=== PATIENT | female | born 1950 | race Caucasian/White ===

== ENCOUNTER 2016-08-24 02:03 | Emergency (ER) | payer OTHER, MEDICARE ==
[2016-08-24] MEDS ORDERED: NS 0.9% 1000 ML* 1,000 ML IV ONE (02:04)
[2016-08-24] MEDS ORDERED: Ondansetron INJ* 2 MG/ML VIAL ONE (02:17)
[2016-08-24] MEDS ORDERED: Ondansetron INJ* 2 MG/ML VIAL IV ONE (02:18)
--- NOTE | 2016-08-24 02:25 | ED ---
Enid Dominguez Rebecca, scribed for Juan Alberto Sanchez MD on 08/24/16 at 0208 . Neurological HPI - HPI Summary HPI Summary: Pt is a 66 y/o F BIBA who comes to ED p/w L-sided weakness. Per , the pt had gotten up to go to the bathroom at 0120 this morning and fell. Her immediately noticed the weakness after the fall which has been constant since onset. Sx aggravated and alleviated by nothing. Additionally c/o N/V. Is not on any blood thinners. No previous similar episodes. - History of Current Complaint Chief Complaint: EDNeurologicalDeficit Stated Complaint: CODE AMBROSIO Time Seen by Provider: 08/24/16 02:04 Hx Obtained From: Patient, EMS Onset/Duration: Sudden Onset, Started hours ago - Aproximately 40 minutes SERVICE DELIVERY MANAGEMENT CONSULTANT, Still Present Timing: Constant Character: Weak - L-sided weakness Aggravating: Nothing Alleviating: Nothing Associated Signs and Symptoms: Positive: Nausea/Vomiting - Allergy/Home Medications Allergies/Adverse Reactions: Allergies Allergy/AdvReac Type Severity Reaction Status Date / Time No Known Allergies Allergy Verified 06/07/12 13:07 PMH/Surg Hx/FS Hx/Imm Hx Respiratory History: Reports: Hx Asthma History: Reports: Other Problems/Disorders - Hx UTI Infectious Disease History: Denies: Traveled Outside the [place] in Last 30 Days - Family History Known Family History: Positive: Cardiac Disease, Hypertension - Social History Lives: With Family Alcohol Use: Occasionally Hx Substance Use: No Substance Use Type: Reports: None Hx Tobacco Use: No Smoking Status (MU): Never Smoked Tobacco Review of Systems Positive: Vomiting, Nausea Positive: Weakness - L-sided weakness All Other Systems Reviewed And Are Negative: Yes Physical Exam Triage Information Reviewed: Yes Vital Signs Reviewed: Yes Appearance: Positive: No Pain Distress Skin: Positive: Warm Head/Face: Positive: Normal Head/Face Inspection Eyes: Positive: EOMI, MARTINA Neck: Positive: Supple Respiratory/Lung Sounds: Positive: Clear to Auscultation, Breath Sounds Present Cardiovascular: Positive: RRR Abdomen Description: Positive: Nontender, Soft Neurological: Positive: Other - left hemiparesis Psychiatric: Positive: Anxious Diagnostics - Laboratory Result Diagrams: 08/24/16 02:31 08/24/16 02:31 Lab Statement: Any lab studies that have been ordered have been reviewed, and results considered in the medical decision making process. - Radiology CXR Xray Interpretation: No Acute Changes Radiology Interpretation Completed By: ED Physician - CT Brain CT CT Interpretation: Positive (See Comments) - Positive for an acute right thalamic parenchymal hemorrhage measuring approximately 3.3 cm x 2.3 cm. There is surrounding edema. Blood has broken through into the third lateral and fourth ventricles. The mass effect of the parenchymal hemorrhage compresses the third ventricle resulting in ventricular outflow obstruction and lateral ventricular hydrocephalus. CT Interpretation Completed By: Radiologist - EKG 0218 Cardiac Rate: NL - 61 bpm EKG Rhythm: Sinus Rhythm ST Segment: Non-Specific - Non-specific ST abnormality NIH Scale - NIH Scale Level of Consciousness: Alert/Keenly Responsive Ask Patient the Month and His/Her Age: Both Correct Ask Pt to Open/Close Eyes and Spiritual Advisor/Release Non-Paretic Hand: Both Correctly Best Gaze (Only Horizontal Eye Movement): Normal Visual Field Testing: No Visual Loss Facial Paresis-Pt to Smile & Close Eyes or Grimace Symmetry: Normal/Symmetrical Motor Function - Right Arm: No Drift-Holds 10 Seconds Motor Function - Left Arm: No Effort Against [place] Motor Function - Right Leg: No Drift-Holds 10 Seconds Motor Function - Left Leg: No Effort Against [place] Limb Ataxia-Must be out of Proportion to Weakness Present: Absent Sensory (Use Pinprick to Test Arms/Legs/Trunk/Face): Normal Best Language (Describe Picture, Name Items): No Aphasia Dysarthria (Read Several Words): Normal Extinction and Inattention: No Abnormality Total Score: 6 Re-Evaluation - Re-Evaluation First Eval Re-Evaluation Time: 03:00 Change: Unchanged Comment: Updated the pt and her . Answered any questions. Course/Dx - Course Assessment/Plan: Pt is a 66 y/o F BIBA who comes to ED p/w L-sided weakness. Per , the pt had gotten up to go to the bathroom at 0120 this morning and fell. Her immediately noticed the weakness after the fall. Sx have been constant since onset. Sx aggravated and alleviated by nothing. Additionally c/o N/V. PMHx HTN. Is not on any blood thinners. No previous similar episodes. EKG reveals sinus rhythm with non-specific ST abnormalities. CXR reveals no acute findigns. Brain CT reveals "Positive for an acute right thalamic parenchymal hemorrhage measuring approximately 3.3 cm x 2.3 cm. There is surrounding edema. Blood has broken through into the third lateral and fourth ventricles. The mass effect of the parenchymal hemorrhage compresses the third ventricle resulting in ventricular outflow obstruction and lateral ventricular hydrocephalus." Discussed care of pt with Radiology is consultant who Discussing CT results. Discussed care of pt with Dr. Lenora Tracy, at 0232 who advised a transfer to his facility in [place], [place]. Discussed care of pt with [facility] at 0249 who will call back. Discussed care of pt with [facility] again at 0319 who gave a room assignment in the ICU. Pt will be transferred to [facility] with a Dx of cerebral hemorrhage. She and agree and understand. - Diagnoses Provider Diagnoses: Cerebral hemorrhage During the Visit The Following Alert/Code Occurred: Code Meredith - Called at 0203 - Physician Notifications Discussed Care Of Patient With: Radiology is consultant Time Discussed With Above Provider: 02:26 Instructed by Provider To: Other - Discussing CT results. Discussed care of pt with Dr. Lenora Tracy, at 0232 who advised a transfer to his facility in [place], [place]. Discussed care of pt with Dr. Jason Maguire at 0240, making him aware of the pt and the plan to transfer at this point. Discussed care of pt with [facility] at 0249 who will call back. Discussed care of pt with [facility] again at 0319 who gave a room assignment in the ICU. - Critical Care Time Critical Care Time: 30-74 min Discharge - Discharge Plan Condition: Critical Disposition: TRANS HIGHER LVL OF CARE FAC Referrals: Yesenia Perry MD [Primary Care Provider] - The documentation as recorded by the Enid longo Rebecca accurately reflects the service I personally performed and the decisions made by , Juan Alberto Sanchez MD.
[2016-08-24 02:42] LABS: Hematocrit 41 % (35-47); Hemoglobin 13.7 g/dl (12.0-16.0); Mean Corpuscular HGB Conc 33 g/dl (31-36); Mean Corpuscular Hemoglobin 33 pg (27-31); Mean Corpuscular Volume 98 fL (80-97); Mean Platelet Volume 7 um3 (7.4-10.4); Red Cell Distribution Width 13 % (10.5-15); White Blood Count 11.2 10^3/ul (3.5-10.8)
[2016-08-24 02:55] LABS: Albumin 4.2 g/dL (3.2-5.2); BUN/Creatinine Ratio 19.2 (8-20); Calcium 8.9 mg/dL (8.6-10.3); EGFR African American 94.5 (>60); EGFR Non-African American 73.4 (>60); Globulin 2.9 g/dL (2-4); HDL Cholesterol 52.1 mg/dL; Potassium 2.9 mmol/L (3.5-5.0); Total Bilirubin 0.5 mg/dL (0.2-1.0); Total Protein 7.1 g/dL (6.4-8.9)
[2016-08-24] MEDS ORDERED: Labetalol IV* 5 MG/ML 20 ML VIAL IV PUSH ONE (02:59)
[2016-08-24 03:40] VITALS: BP 164/84
--- NOTE | 2016-08-24 07:58 | RAD ---
INDICATION: Neurologic changes, code acosta. COMPARISON: There are no prior studies available for comparison. TECHNIQUE: A portable view of the chest was obtained. FINDINGS: Cardiac and mediastinal contours appear to be within normal limits. The lungs are clear. No pleural effusion is seen. IMPRESSION: NO EVIDENCE FOR ACUTE DISEASE.
--- NOTE | 2016-08-24 08:04 | RAD ---
INDICATION: Neurologic changes, code acosta. COMPARISON: There are no prior studies available for comparison. TECHNIQUE: Contiguous axial sections of the brain were obtained from the skull base to the vertex without contrast. FINDINGS: There is a focal area of increased density consistent with hemorrhage centered in the right thalamus with extension into the posterior limb of the internal capsule measuring approximately 3.4 x 2.3 cm in size. This causes mass effect and compression of the third ventricle which is displaced toward the left side with approximately 6 mm. There is extension of hemorrhage into the lateral, third and fourth ventricles. There is mild dilatation of the lateral ventricles consistent with hydrocephalus. No significant focal osseous abnormality is seen. The visualized portion of the paranasal sinuses and mastoid air cells appear clear. IMPRESSION: FINDINGS CONSISTENT WITH AN ACUTE HEMORRHAGIC INFARCT CENTERED IN THE RIGHT THALAMUS WITH EXTENSION INTO THE VENTRICLES. THERE IS MASS EFFECT AND HYDROCEPHALUS DESCRIBED.
== END 2016-08-24 03:57 | disposition short-term general hospital (02) ==
LOC: ED 02:03
DX: I61.9 Nontraumatic intracerebral hemorrhage, unspecified (principal); G81.94 Hemiplegia, unspecified affecting left nondominant side; R11.2 Nausea with vomiting, unspecified; J45.909 Unspecified asthma, uncomplicated; Z87.440 Personal history of urinary (tract) infections
CPT/HCPCS: 36415; 70450; 71010; 80053; 80061; 83605; 84484; 85025; 85610; 85730; 93005; 96360; 96361; 96374; 99284; J2405

== ENCOUNTER 2016-09-03 07:11 | Inpatient (IN) | payer OTHER, MEDICARE ==
[2016-09-03] MEDS ORDERED: Bisacodyl SUPP* 10 MG SUPP PR PRN (12:24)
[2016-09-03] MEDS ORDERED: Magnesium Hydroxide LIQ* 30 ML UDC PO PRN (12:24)
[2016-09-03] MEDS ORDERED: Polyethylene Glycol 3350* 17 GM PACKET PO PRN (12:35)
[2016-09-03] MEDS: Acetaminophen TAB* 325 MG PO PRN (20:40)
[2016-09-03] MEDS: Docusate CAP* 100 MG PO SCH (20:51)
[2016-09-03] MEDS: Heparin VIAL(*) 5000 UNITS/ML VIAL (FIVE THOUSAND) SUBCUT SCH (20:51)
[2016-09-03] MEDS: Senna TAB PO SCH (20:51)
--- NOTE | 2016-09-04 00:36 | HP ---
ADMISSION HISTORY AND PHYSICAL: DATE OF ADMISSION: 09/03/16 REASON FOR ADMISSION: Thalamic/intracerebral hemorrhage. HISTORY OF PRESENT ILLNESS: Katy Duong is a 66-year-old female. She has little in the way of medical history. On 08/23/16, she drove home to [place] from [facility] where her son is the is manager of a [employer]. It was a long drive. She had called her boyfriend on the way to say the air conditioning was not working in the car. She got home and felt exhausted after the long trip. She was getting into bed and her boyfriend asked her to scratch his back. She felt like her left hand was not working properly as she tried to do it. The boyfriend was worried and then she got up after lying down to try to go to the bathroom and she fell. She did not strike her head. Her boyfriend asked her to smile for him and he noticed when she attempted to smile , she had left facial droop. He called 911. He had given her aspirin earlier because she said she had a headache. 911 came and the patient was brought to [facility] Emergency Room. Her boyfriend drove her car to the hospital; the air conditioning worked, but the heat was on. She had a CAT scan of her brain in the emergency room, which showed a hemorrhagic infarct in the right thalamus with extension into the ventricles. It was decided that the patient would be transferred to [facility]. The patient was going to be transferred to [facility] [place] with a diagnosis of intracerebral hemorrhage. Dr. Tracy had accepted the patient. At [facility] [place], a decision was made to transfer the patient to [facility] via helicopter. She was admitted to the service of Dr. Card. She had a head CT and MRI scan showing right thalamic hemorrhage with intraventricular extension into the lateral third and fourth ventricles. Her systolic blood pressure was noted to be in the 170s. She was started on a nicardipine drip and admitted to the neurologic ICU. Neurosurgery was consulted and placed an external ventricular drain for intracranial pressure monitoring and CSF diversion. Her neurologic exam gradually improved. She was started on amlodipine for her blood pressure. She was also put on hydralazine. Her nicardipine drip was weaned off. Hydralazine was later transitioned to lisinopril. On 09/01/16 her ventricular drain was removed by the neurosurgery tube. Repeat head CT demonstrated stable hemorrhage. She also had a small external ventricular drain tract hemorrhage. The tract hemorrhage was stable upon subsequent imaging. She worked with Physical Therapy and Occupational Therapy as well as Speech Therapy. The patient was felt to have needs in all 3 disciplines. She is now being admitted for inpatient rehab so that she might return to independent living. Her sutures from the ventricular drain site will need to be removed on 09/07/16. PAST MEDICAL HISTORY: Largely nonsignificant. She does have a history of asthma, but otherwise benign. CURRENT MEDICATIONS: Include: 1. Lipitor. 2. Norvasc. 3. Heparin for DVT prophylaxis. 4. Lisinopril. 5. Bowel medications. ALLERGIES: The patient has no known drug allergies. SOCIAL HISTORY: She is a nonsmoker. She drank 2 glasses of wine a night prior to admission. 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 She lives in a 3-story house. Entry is on the second floor. There are bedrooms and bathrooms on the first level. The patient lives with her boyfriend, Oskar Oakley, who is her domestic partner and healthcare proxy. REVIEW OF SYSTEMS: The patient reports no current shortness of breath or chest pain. PHYSICAL EXAMINATION VITAL SIGNS: The patient's temperature is 98.5, blood pressure is 110/66, pulse is 81, respirations are 12. HEENT: She appears to have a left gaze preference. No visual field deficits are seen. She has a suture line over her right scalp. She has left facial palsy. NECK: Supple. LUNGS: Sounded clear to auscultation bilaterally. HEART: Heart sounds are regular, S1 and S2 are audible. ABDOMEN: Soft and nontender. EXTREMITIES: Her left arm is starting to get some tone. Left leg is flaccid. She has some extensor plantar flexion tone at the left foot. NEUROLOGIC: She is awake, alert, and oriented. Muscle strength is 5/5 on the right. She has trace shoulder extension on the left arm. I did not detect any motion in the left leg. Her transfers are dependent. ASSESSMENT: Right thalamic hemorrhage with left hemiplegia. PLAN: We are going to integrate her into comprehensive and therapeutic rehab program with the following goals. 1. Physical Therapy will see the patient. They are going to work on functional transfer training, ambulation training. 2. Occupational Therapy will see the patient, work on her activities of daily living including toileting and toilet transfers. 3. Speech Therapy will see the patient, do a cognitive screen, and cognitive linguistic eval. 4. Heparin for DVT prophylaxis. 5. We will continue lisinopril as well as amlodipine for her blood pressure. 6. SSRI/Prozac as indicated. 7. Stimulants as indicated. 8. director of child welfare services will be closely involved to make sure that any services and equipment the patient requires are in place prior to discharge. 9. Advanced directives. The patient is a full code. Oskar Oakley, her domestic partner, is her healthcare proxy. 10. Family training as appropriate. 11. Home with appropriate services. ESTIMATED LENGTH OF STAY: Four weeks. [id number]/CPS #: [id number] MTDD
[2016-09-04 06:27] LABS: Hematocrit 42 % (35-47); Mean Corpuscular HGB Conc 33 g/dl (31-36); Mean Corpuscular Hemoglobin 33 pg (27-31); Mean Corpuscular Volume 99 fL (80-97); Mean Platelet Volume 8 um3 (7.4-10.4); Red Blood Count 4.22 10^6/ul (4.0-5.4); Red Cell Distribution Width 13 % (10.5-15); White Blood Count 9.7 10^3/ul (3.5-10.8)
[2016-09-04 06:48] LABS: Albumin 3.6 g/dL (3.2-5.2); BUN/Creatinine Ratio 29.9 (8-20); Calcium 8.7 mg/dL (8.6-10.3); EGFR African American 112.6 (>60); EGFR Non-African American 87.5 (>60); Globulin 2.8 g/dL (2-4); Potassium 3.4 mmol/L (3.5-5.0); Total Bilirubin 0.6 mg/dL (0.2-1.0); Total Protein 6.4 g/dL (6.4-8.9)
[2016-09-04] MEDS: Lisinopril TAB* 10 MG PO SCH (08:48)
[2016-09-04] MEDS: Docusate CAP* 100 MG PO SCH ×2 (08:48→19:12)
[2016-09-04] MEDS: amLODIPine TAB* 5 MG PO SCH (08:48)
[2016-09-04] MEDS: Heparin VIAL(*) 5000 UNITS/ML VIAL (FIVE THOUSAND) SUBCUT SCH ×2 (08:49→19:12)
[2016-09-04] MEDS: Potassium Chlor TAB* 20 MEQ TAB.ER PO SCH ×2 (10:58→19:12)
[2016-09-04] MEDS: Acetaminophen TAB* 325 MG PO PRN (12:01)
--- NOTE | 2016-09-04 12:09 | PMRUTEAM ---
PMRU: Goals Current Status: Nursing: Current Status Skin Deviations [Left Heel] Other Skin Deviations [Left Hand] Previous Access Point Skin Deviations [Coccyx] Other Skin Deviations [Back] Rash Skin Deviations [Right Upper Incision Head] Skin Deviation Description [ red Left Heel] Skin Deviation Description [ bump, infiltrated, patient states is sore Left Hand] Skin Deviation Description [ red Coccyx] Skin Deviation Description [ upper back, cream applied Back] Skin Deviation Description [ EVD removed. Right Upper Head] Physical Therapy: Current Status Bed Mobility Assistance max A Transfer Moblility Assistance Mod A Ambulation Assistance not tested/unable Wheelchair Distance (ft) no tested yet OCCUPATIONAL THERAPY: Upper body and lower body dressing max to total assist, toileting total assist of 2, transfer 2 mod to max A, eating set up but cues for left side of plate, grooming set up. Speech tx - left neglect.moderate visual attention for reading and writing. time management 60% accuracy. Social Work: Current Status Discharge Plan return home with home care svs and family support Potential for Family Training pt's family and friends are attentive and involved Anticipated Discharge Home Destination Discharge With home care svs and family support Goals: Physical Therapy: Initial Goals Bed Mobility Assistance Independent Transfer Mobility Assistance Independent stand pivot Wheelchair Propulsion Ability Independent 150ft OCCUPATIONAL THERAPY GOALS: modified independent for toileting, grooming, eating. Supervision for showers with shower chair. Speech: Goals Speech Goal 1 Cognitive-linguistic Goal 1 Comments LTG: The patient will complete functional cognitive-linguistic tasks at 90% accuracy for improved safety, function and independence for daily living tasks. STGs: 1. The patient will complete functional left visual attention for reading and writing tasks at 90% accuracy with min cues. 2. The patient will complete ongoing assessment for functional money and time management tasks with update to POC as warranted. Social Work: Goals Discharge Plan return home with home care svs and family support Potential for Family Training pt's family and friends are attentive and involved Anticipated Discharge Home Destination Discharge With home care svs and family support Care Plan: Care Plan Communication-Improve/Maintain Start: 09/03/16 23:19 Freq: QSHIFT Status: Active Target: Activity Type Activity Date Activity User E-Sign Co-Sign Detail Recorded Client Recorded Date Recorded By Document 09/04/16 11:31 [id number] 09/04/16 11:33 [id number] 09/04/16 11:31 PMRU Outcome: Communication/Cognitive Status Outcome/Goals Makes Needs Known Effectively Progression Toward Outcomes/Goals Progressing Coping/Psych-Improve/Maintain Start: 09/03/16 23:19 Freq: QSHIFT Status: Active Target: Activity Type Activity Date Activity User E-Sign Co-Sign Detail Recorded Client Recorded Date Recorded By Document 09/04/16 11:31 [id number] 09/04/16 11:33 [id number] 09/04/16 11:31 PMRU Outcome: Coping/Psychosocial Coping Outcome/Goals Verbalization of Acceptance of Rehab Admit Verbalization of Sense of Control Over Health Status Willingness to Participate in Treatment Plan and Basic Needs Utilization of Available Support Systems Psychosocial Outcome/Goals Maintain/ Improve Emotional Health Progression Toward Outcome/Goals - Progressing Coping DVT Prophylaxis- Improve/Maintain Start: 09/03/16 23:19 Freq: QSHIFT Status: Active Target: Activity Type Activity Date Activity User E-Sign Co-Sign Detail Recorded Client Recorded Date Recorded By Document 09/04/16 11:31 [id number] [email or web address] 09/04/16 11:33 [id number] 09/04/16 11:31 PMRU Outcome: DVT Prophylaxis Outcome/Goals Remains Free of DVT Demonstrates Knowledge of DVT Prevention/ Treatment TEDS Stockings on Every AM, Off at HS Progression Toward Outcome/Goals Progressing /GI-Improve/Maintain Start: 09/03/16 23:19 Freq: QSHIFT Status: Active Target: Activity Type Activity Date Activity User E-Sign Co-Sign Detail Recorded Client Recorded Date Recorded By Document 09/04/16 11:31 [id number] 09/04/16 11:33 [id number] 09/04/16 11:31 PMRU Outcome: Genitourinary/ Gastrointestinal Genitourinary- Outcome/Goals Maintain/ Achieve Urinary Continence Remain Free of Hospital- Acquired UTI Gastrointestinal-Outcome/Goals Maintain/ Achieve Bowel Regularity in Accordance with Pt's Baseline Remain Free of Emesis Bowel Regularity at Home Laxatives as Ordered Progression Toward Outcome/Goals - Progressing Progression Toward Outcome/Goals - GI Progressing Genitourinary- Outcome/Goals Met Maintain/ Achieve Urinary Continence Mobility- Improve/Maintain Start: 09/03/16 18:01 Freq: QSHIFT Status: Active Target: Activity Type Activity Date Activity User E-Sign Co-Sign Detail Recorded Client Recorded Date Recorded By Document 09/03/16 18:01 [id number] 09/03/16 18:02 [id number] 09/03/16 18:01 PMRU Outcome: Mobility Physical Therapy Evaluation and Yes Treatment Activity OOB with Assistance Yes WBAT Yes NWB No TTWB No Patient to be seen 5x/wk for 60-120 min/ Therex day for: Mobility Training Gait Training W/C Mobility Balance Outcome/Goals Maintain/ Achieve Baseline Mobility Status Improve Mobility Status Demonstrates Proper Use of Assistive Devices Free from Complications of Immobility Bed Mobility Yes: independent Transfers mod independent W/C Mobility x ft Yes: independent x250ft Neurological- Improve/Maintain Start: 09/03/16 23:19 Freq: QSHIFT Status: Active Target: Activity Type Activity Date Activity User E-Sign Co-Sign Detail Recorded Client Recorded Date Recorded By Document 09/04/16 11:31 [id number] 09/04/16 11:33 [id number] 09/04/16 11:31 PMRU Outcome: Neurological Outcome/Goals Maintain/ Achieve Baseline Neurological Status Improve Neurological Status Maintain/ Improve Strength/ROM Progression Toward Outcome/Goals Progressing Pain/Comfort- Improve/Maintain Start: 09/03/16 23:19 Freq: QSHIFT Status: Active Target: Activity Type Activity Date Activity User E-Sign Co-Sign Detail Recorded Client Recorded Date Recorded By Document 09/04/16 11:31 [id number] 09/04/16 11:33 [id number] 09/04/16 11:31 PMRU Outcome: Pain/Comfort Outcome/Goals Demonstrates Knowledge and Use of Available Comfort Measures Achieves Acceptable Comfort/Pain Level as Determined by Patient/Condit Maintain Comfort Level Allowing Patient to Fully Participate in Rehab Progression Toward Outcome/Goals Progressing Safety- Improve/Maintain Start: 09/03/16 23:19 Freq: QSHIFT Status: Active Target: Activity Type Activity Date Activity User E-Sign Co-Sign Detail Recorded Client Recorded Date Recorded By Document 09/04/16 11:31 [id number] 09/04/16 11:33 [id number] 09/04/16 11:31 PMRU Outcome: Safety Outcome/Goals Remain Free of Injury or Harm Cooperates with Safety Measures for Least Restrictive Environment Prevent Falls/ Injury Progression Toward Outcome/Goals Progressing Skin- Improve/Maintain Start: 09/03/16 23:19 Freq: QSHIFT Status: Active Target: Activity Type Activity Date Activity User E-Sign Co-Sign Detail Recorded Client Recorded Date Recorded By Document 09/04/16 11:31 [id number] 09/04/16 11:33 [id number] 09/04/16 11:31 PMRU Outcome: Skin Skin Risk Level Medium Skin Orders Dressing Change Air Mattress Outcome/Goals Maintain/ Improve Skin Intergrity Free from Decubitus Surgical Incisions Healing Progression Toward Outcome/Goals Progressing Medicine Note: Length of Stay: [4 weeks] Anticipated Discharge Destination: Home Tentative Discharge Date: [10/02/16] Discharged to: [home]
[2016-09-04] MEDS: Atorvastatin* 80 MG TAB PO SCH (17:20)
[2016-09-04] MEDS: Senna TAB PO SCH (19:12)
[2016-09-05] MEDS: Potassium Chlor TAB* 20 MEQ TAB.ER PO SCH ×2 (07:50→19:45)
[2016-09-05] MEDS: Acetaminophen TAB* 325 MG PO PRN (07:50)
[2016-09-05] MEDS: amLODIPine TAB* 5 MG PO SCH (07:50)
[2016-09-05] MEDS: Lisinopril TAB* 10 MG PO SCH (07:50)
[2016-09-05] MEDS: Docusate CAP* 100 MG PO SCH ×2 (07:50→19:45)
[2016-09-05] MEDS: Heparin VIAL(*) 5000 UNITS/ML VIAL (FIVE THOUSAND) SUBCUT SCH ×2 (07:52→19:45)
[2016-09-05] MEDS: Atorvastatin* 80 MG TAB PO SCH (18:15)
[2016-09-05] MEDS: Senna TAB PO SCH (19:45)
[2016-09-06] MEDS: Lisinopril TAB* 10 MG PO SCH (08:49)
[2016-09-06] MEDS: amLODIPine TAB* 5 MG PO SCH (08:49)
[2016-09-06] MEDS: Potassium Chlor TAB* 20 MEQ TAB.ER PO SCH ×2 (08:49→20:20)
[2016-09-06] MEDS: Docusate CAP* 100 MG PO SCH ×2 (08:49→20:21)
[2016-09-06] MEDS: Heparin VIAL(*) 5000 UNITS/ML VIAL (FIVE THOUSAND) SUBCUT SCH ×2 (08:50→20:21)
[2016-09-06 09:39] LABS: BUN/Creatinine Ratio 28.8 (8-20); Calcium 9.4 mg/dL (8.6-10.3); EGFR Non-African American 79.3 (>60); Globulin 3.1 g/dL (2-4); Potassium 3.6 mmol/L (3.5-5.0); Total Bilirubin 0.8 mg/dL (0.2-1.0); Total Protein 7.1 g/dL (6.4-8.9)
[2016-09-06 13:09] LABS: Magnesium 1.9 mg/dL (1.9-2.7)
[2016-09-06] MEDS: Atorvastatin* 80 MG TAB PO SCH (16:13)
[2016-09-06] MEDS: Senna TAB PO SCH (20:21)
[2016-09-07] MEDS: Heparin VIAL(*) 5000 UNITS/ML VIAL (FIVE THOUSAND) SUBCUT SCH ×2 (09:23→22:10)
[2016-09-07] MEDS: amLODIPine TAB* 5 MG PO SCH (09:23)
[2016-09-07] MEDS: Potassium Chlor TAB* 20 MEQ TAB.ER PO SCH ×2 (09:23→20:01)
[2016-09-07] MEDS: Docusate CAP* 100 MG PO SCH ×2 (09:42→20:02)
[2016-09-07] MEDS: Lisinopril TAB* 10 MG PO SCH (09:43)
[2016-09-07] MEDS: Atorvastatin* 80 MG TAB PO SCH (16:38)
[2016-09-07] MEDS: Senna TAB PO SCH (20:02)
[2016-09-07] MEDS ORDERED: diPHENhydraMINE PO* 25 MG PO SCH (21:00)
[2016-09-08 06:06] LABS: BUN/Creatinine Ratio 33.8 (8-20); Calcium 9.1 mg/dL (8.6-10.3); EGFR African American 116.6 (>60); EGFR Non-African American 90.6 (>60); Potassium 4.2 mmol/L (3.5-5.0)
[2016-09-08] MEDS: Potassium Chlor TAB* 20 MEQ TAB.ER PO SCH (08:43)
[2016-09-08] MEDS: amLODIPine TAB* 5 MG PO SCH (08:44)
[2016-09-08] MEDS: Lisinopril TAB* 10 MG PO SCH (08:44)
[2016-09-08] MEDS: Heparin VIAL(*) 5000 UNITS/ML VIAL (FIVE THOUSAND) SUBCUT SCH ×2 (08:45→21:51)
[2016-09-08] MEDS: Docusate CAP* 100 MG PO SCH ×2 (08:48→21:51)
--- NOTE | 2016-09-08 12:48 | PMRUTEAM ---
PMRU: Goals Current Status: Nursing: Current Status Skin Deviations [Left Heel] Other Skin Deviations [Left Hand] Previous Access Point Skin Deviations [Coccyx] Other Skin Deviations [Back] Rash Skin Deviations [Right Upper Incision Head] Skin Deviation Description [ red Left Heel] Skin Deviation Description [ bump, infiltrated, patient states is sore Left Hand] Skin Deviation Description [ redness Coccyx] Skin Deviation Description [ baby powder used Back] Skin Deviation Description [ drsg intact Right Upper Head] Bladder Current Status voiding on bsc or using bedpan Bowel Current Status last bm 09/07/16 Nutrition Current Status appetite good Medication Current Status needs reinforcement Physical Therapy: Current Status Bed Mobility Assistance Mod Assist Transfer Moblility Assistance Min Assist,Mod Assist Transfer/Bed Mobility None Recommended Devices Ambulation Assistance Unable Manual Wheelchair Control/ Right UE/Right LE Technique Wheelchair Propulsion Ability Moderate Assistance Wheelchair Distance (ft) 100x2 Objective Comments Pt requires assistance with wheelchair mobility to avoid objects on LEFT. Occupational Therapy: Current Status Upper Body Dressing Mod Assist Lower Body Dressing Max Asst Bathing Mod Assist Toileting Total Assist,2 Person Assist Toilet Transfer Mod Assist,2 Person Assist Shower Transfer Mod Assist,2 Person Assist Eating Supervision Instrumental ADL Dependent for IADLs Rec Therapy: Current Status Summary of Assessment and RT assessment complete and pt. is aware of Clinical Impression services. Pt. presents as very flat during visits but is polite and voices appreciative. Pt. is very interested in massage therapy and has been active in sessions while on the unit. Treatment Goals Pt. will engage in leisure activities while on the unit. Treatment Plan Provide RT services and encourage involvement. Provide support as needed and assist with the coordination of massage therapy while on the unit. Provided individualized activities for pt. to engage in while in her room. Social Work: Current Status Discharge Plan return home with home care svs and family support Potential for Family Training pt's family and friends are attentive and involved Anticipated Discharge Home Destination Discharge With home care svs and family support Nutrition: Current Status Monitoring Pt s/p ICH. Intake appears adequate: 75-100% of most meals, though some 5-25% noted. Generally independent, though sometimes needs food cut or assistance with feeding. BMs 09/04-. No evidence of difficulty chewing/swallowing per nursing assessments. Regular diet appears appropriate at this time. Full nutrition assessment to follow per protocol. Speech: Current Status Assessment The patient made improvements with left visual attention for reading and writing, however presented with significant deficit with visual attention for left lower quadrant. The patient presented with deficits with functional time management tasks. The patient would benefit from skilled [facility] services for cognitive-linguistic treatment focusing on left visual attention for reading and writing and functional money and time management tasks for improved safety, function and indpenedence for daily living tasks. Goals: Physical Therapy: Initial Goals Bed Mobility Assistance Independent Transfer Mobility Assistance Independent Wheelchair Propulsion Ability Independent Occupational Therapy: Initial Goals Goals to be Completed in (Days 28 days ) Upper Body Bathing Routine Modified Independent with Lower Body Bathing Routine Supervision/Set Up Upper Body Dressing Routine Modified Independent with Lower Body Dressing Routine Modified Independent with Toilet Hygeine and Clothing Modified Independent with Management Routine Toilet Transfer Routine Modified Independent with Step-In Shower Transfer Supervision/Set Up Routine Tub Transfer Routine Supervision/Set Up Functional Transfers for ADL Modified Independent with Grooming Routine Modified Independent with Feeding Routine Supervision/Set Up Nursing: Goals Bladder Goal independent Bowel Goal independent Nutrition Goal 100% of all meals eaten Medication Goal independent Nutrition: Goals Intervention Goals 1. Pt will tolerate regular diet with intake adequate to maintain UBW 2. Pt will maintain regular bowel pattern without constipation/diarrhea Speech: Goals Speech Goal 1 Cognitive-linguistic Goal 1 Comments LTG: The patient will complete functional cognitive-linguistic tasks at 90% accuracy for improved safety, function and independence for daily living tasks. STGs: 1. The patient will complete functional left visual attention for reading and writing tasks at 90% accuracy with min cues. Status: The patient read functional time chart ( banking hours) with moderate-max cues when placed on table slightly to left (lower left quadrant) and required min-mod cues for left visual attention when placed at eye level. The patient required moderate cues to write responses to questions pertaining to functional time chart as the patient attempted to write off the line on the incorrect line. 2. The patient will complete ongoing assessment for functional money and time management tasks with update to POC as warranted. Status: The patient completed functional time management tasks at 50% accuracy improving to 60% accuracy with repetition and 100% accuracy with moderate cues. Social Work: Goals Discharge Plan return home with home care svs and family support Potential for Family Training pt's family and friends are attentive and involved Anticipated Discharge Home Destination Discharge With home care svs and family support Care Plan: Care Plan ADL's - Improve/Maintain Start: 09/03/16 23:19 Freq: DAILY Status: Active Target: Activity Type Activity Date Activity User E-Sign Co-Sign Detail Recorded Client Recorded Date Recorded By Document 09/07/16 14:35 [id number] [id number] 09/07/16 14:36 [id number] 09/07/16 14:35 PMRU Outcome: ADL's/ADL Transfers Orders/Interventions Occupational Therapy Evaluation & Treatment Communication Tool in Patient Room Device Yes: w/c, L side arm support on w/c Patient to receive OT 5x/wk for 60-120 Therex min/day Self Care Management Group Therapy Neuromuscular ReEducation UE/LE ADL's with Assist Yes ADL Transfers with Assist Yes Toileting: Transfers,Clothing Management Yes ,Hygeine w/Assist Light Kitchen/Laundry w/Assist Yes Progression Toward Outcome/Goals Progressing Outcome/Goals Met Pt. is min assist x1 and CGA x1 for stand pivot transfers. Pt. completed bathing while seated on shower bench with LOB x5, and is unaware of need to change body position after LOB. Communication-Improve/Maintain Start: 09/03/16 23:19 Freq: DAILY Status: Active Target: Activity Type Activity Date Activity User E-Sign Co-Sign Detail Recorded Client Recorded Date Recorded By Document 09/08/16 08:16 [id number] [email or web address] 09/08/16 08:17 [id number] 09/08/16 08:16 PMRU Outcome: Communication/Cognitive Status Outcome/Goals Makes Needs Known Effectively Other Outcomes/Goals The patient will complete functional cognitive- linguistic tasks for increased function safety and independence at 90% accuracy. Progression Toward Outcomes/Goals Progressing Outcome/Goals Met Comment Time management 60% accuracy, reading for left visual attention min- max cues for functional reading task - min-mod cues when set at eye level, mod-max cues when placed on table slightly to left. Coping/Psych-Improve/Maintain Start: 09/03/16 23:19 Freq: DAILY Status: Active Target: Activity Type Activity Date Activity User E-Sign Co-Sign Detail Recorded Client Recorded Date Recorded By Document 09/08/16 11:13 [id number] 09/08/16 11:15 [id number] 09/08/16 11:13 PMRU Outcome: Coping/Psychosocial Coping Outcome/Goals Verbalization of Acceptance of Rehab Admit Verbalization of Sense of Control Over Health Status Willingness to Participate in Treatment Plan and Basic Needs Utilization of Available Support Systems Psychosocial Outcome/Goals Maintain/ Improve Emotional Health Cooperate/ Participate in Plan Progression Toward Outcome/Goals - Progressing Coping Progression Toward Outcome/Goals - Progressing Psychosocial DVT Prophylaxis- Improve/Maintain Start: 09/03/16 23:19 Freq: DAILY Status: Active Target: Activity Type Activity Date Activity User E-Sign Co-Sign Detail Recorded Client Recorded Date Recorded By Document 09/08/16 11:13 [id number] 09/08/16 11:15 [id number] 09/08/16 11:13 PMRU Outcome: DVT Prophylaxis Outcome/Goals Remains Free of DVT Complies with DVT Prophylaxis /Treatment Demonstrates Knowledge of DVT Prevention/ Treatment TEDS Stockings on Every AM, Off at HS Progression Toward Outcome/Goals Progressing Outcome/Goals Met Remains Free of DVT /GI-Improve/Maintain Start: 09/03/16 23:19 Freq: DAILY Status: Active Target: Activity Type Activity Date Activity User E-Sign Co-Sign Detail Recorded Client Recorded Date Recorded By Document 09/08/16 11:13 [id number] [id number] 09/08/16 11:15 [id number] 09/08/16 11:13 PMRU Outcome: Genitourinary/ Gastrointestinal Genitourinary- Outcome/Goals Maintain/ Achieve Urinary Continence Remain Free of Hospital- Acquired UTI Gastrointestinal-Outcome/Goals Maintain/ Achieve Bowel Regularity in Accordance with Pt's Baseline Remain Free of Emesis Prevent Constipation Bowel Regularity at Home Laxatives as Ordered Progression Toward Outcome/Goals - Progressing Progression Toward Outcome/Goals - GI Progressing Genitourinary- Outcome/Goals Met Maintain/ Achieve Urinary Continence Mobility- Improve/Maintain Start: 09/03/16 18:01 Freq: DAILY Status: Active Target: Activity Type Activity Date Activity User E-Sign Co-Sign Detail Recorded Client Recorded Date Recorded By Document 09/05/16 18:25 [id number] 09/05/16 18:25 [id number] 09/05/16 18:25 PMRU Outcome: Mobility Physical Therapy Evaluation and Yes Treatment Activity OOB with Assistance Yes WBAT Yes NWB No TTWB No Patient to be seen 5x/wk for 60-120 min/ Therex day for: Mobility Training Gait Training W/C Mobility Balance Outcome/Goals Maintain/ Achieve Baseline Mobility Status Improve Mobility Status Demonstrates Proper Use of Assistive Devices Free from Complications of Immobility Progression Toward Outcome/Goals Progressing Bed Mobility Yes: independent Transfers mod independent W/C Mobility x ft Yes: independent x250ft Neurological- Improve/Maintain Start: 09/03/16 23:19 Freq: DAILY Status: Active Target: Activity Type Activity Date Activity User E-Sign Co-Sign Detail Recorded Client Recorded Date Recorded By Document 09/08/16 11:13 [id number] [email or web address]14 09/08/16 11:15 [id number] 09/08/16 11:13 PMRU Outcome: Neurological Weakness/Aphasia Weakness Left Side Outcome/Goals Maintain/ Achieve Baseline Neurological Status Improve Neurological Status Maintain/ Improve Strength/ROM Progression Toward Outcome/Goals Progressing Pain/Comfort- Improve/Maintain Start: 09/03/16 23:19 Freq: DAILY Status: Active Target: Activity Type Activity Date Activity User E-Sign Co-Sign Detail Recorded Client Recorded Date Recorded By Document 09/08/16 11:13 [id number] [email or web address]-C14 09/08/16 11:15 [id number] 09/08/16 11:13 PMRU Outcome: Pain/Comfort Outcome/Goals Demonstrates Knowledge and Use of Available Comfort Measures Achieves Acceptable Comfort/Pain Level as Determined by Patient/Condit Maintain Comfort Level Allowing Patient to Fully Participate in Rehab Progression Toward Outcome/Goals Progressing Outcome/Goals Met Demonstrates Knowledge and Use of Available Comfort Measures Safety- Improve/Maintain Start: 09/03/16 23:19 Freq: DAILY Status: Inactive Target: Activity Type Activity Date Activity User E-Sign Co-Sign Detail Recorded Client Recorded Date Recorded By Document 09/08/16 11:13 [id number] [email or web address]14 09/08/16 11:15 [id number] 09/08/16 11:13 PMRU Outcome: Safety Outcome/Goals Remain Free of Injury or Harm Cooperates with Safety Measures for Least Restrictive Environment Prevent Falls/ Injury Progression Toward Outcome/Goals Progressing Outcome/Goals Met Cooperates with Safety Measures for Least Restrictive Environment Prevent Falls/ Injury Skin- Improve/Maintain Start: 09/03/16 23:19 Freq: DAILY Status: Active Target: Activity Type Activity Date Activity User E-Sign Co-Sign Detail Recorded Client Recorded Date Recorded By Document 09/08/16 11:13 [id number] 09/08/16 11:15 [id number] 09/08/16 11:13 PMRU Outcome: Skin Skin Risk Level Medium Dressing Change Comments pillows Outcome/Goals Maintain/ Improve Skin Intergrity Free from Decubitus Surgical Incisions Healing Progression Toward Outcome/Goals Progressing Medicine Note: Length of Stay: [3.5 weeks] Anticipated Discharge Destination: Home Tentative Discharge Date: [10/02/16] Discharged to: [home]
[2016-09-08] MEDS: Atorvastatin* 80 MG TAB PO SCH (17:15)
[2016-09-08] MEDS ORDERED: [UNRECOGNIZED DRUG - OTHER] SL PRN (21:18)
[2016-09-08] MEDS: diPHENhydraMINE PO* 25 MG PO SCH ×2 (21:51→22:45)
[2016-09-08] MEDS: Senna TAB PO SCH (21:51)
[2016-09-09] MEDS: Lisinopril TAB* 10 MG PO SCH (08:12)
[2016-09-09] MEDS: Heparin VIAL(*) 5000 UNITS/ML VIAL (FIVE THOUSAND) SUBCUT SCH ×2 (08:12→20:49)
[2016-09-09] MEDS: Docusate CAP* 100 MG PO SCH ×2 (08:12→20:48)
[2016-09-09] MEDS: amLODIPine TAB* 5 MG PO SCH (08:12)
[2016-09-09] MEDS: Senna TAB PO SCH (20:48)
[2016-09-09] MEDS: Atorvastatin* 80 MG TAB PO SCH (20:48)
[2016-09-09] MEDS: diPHENhydraMINE PO* 25 MG PO SCH (20:48)
[2016-09-10] MEDS: Lisinopril TAB* 10 MG PO SCH (08:08)
[2016-09-10] MEDS: amLODIPine TAB* 5 MG PO SCH (08:08)
[2016-09-10] MEDS: Docusate CAP* 100 MG PO SCH ×2 (08:08→19:56)
[2016-09-10] MEDS: Heparin VIAL(*) 5000 UNITS/ML VIAL (FIVE THOUSAND) SUBCUT SCH ×2 (08:09→19:56)
[2016-09-10] MEDS: Atorvastatin* 80 MG TAB PO SCH (19:55)
[2016-09-10] MEDS: diPHENhydraMINE PO* 25 MG PO SCH (19:56)
[2016-09-10] MEDS: Senna TAB PO SCH (19:56)
[2016-09-11 06:54] LABS: Hematocrit 42 % (35-47); Hemoglobin 13.7 g/dl (12.0-16.0); Mean Corpuscular HGB Conc 33 g/dl (31-36); Mean Corpuscular Hemoglobin 33 pg (27-31); Mean Corpuscular Volume 100 fL (80-97); Mean Platelet Volume 8 um3 (7.4-10.4); Red Blood Count 4.16 10^6/ul (4.0-5.4); Red Cell Distribution Width 13 % (10.5-15); White Blood Count 8.1 10^3/ul (3.5-10.8)
[2016-09-11 07:08] LABS: Albumin 3.7 g/dL (3.2-5.2); BUN/Creatinine Ratio 31.3 (8-20); Calcium 9.3 mg/dL (8.6-10.3); EGFR African American 91.7 (>60); EGFR Non-African American 71.3 (>60); Total Bilirubin 0.7 mg/dL (0.2-1.0); Total Protein 6.7 g/dL (6.4-8.9)
[2016-09-11] MEDS: Docusate CAP* 100 MG PO SCH ×2 (08:15→21:26)
[2016-09-11] MEDS: amLODIPine TAB* 5 MG PO SCH (08:15)
[2016-09-11] MEDS: Lisinopril TAB* 10 MG PO SCH (08:15)
[2016-09-11] MEDS: Heparin VIAL(*) 5000 UNITS/ML VIAL (FIVE THOUSAND) SUBCUT SCH ×2 (08:16→21:35)
[2016-09-11] MEDS: [UNRECOGNIZED DRUG - OTHER] SL PRN (08:45)
[2016-09-11] MEDS: Atorvastatin* 80 MG TAB PO SCH (16:48)
[2016-09-11] MEDS: Senna TAB PO SCH (21:35)
[2016-09-11] MEDS: diPHENhydraMINE PO* 25 MG PO SCH (21:35)
[2016-09-12] MEDS: Lisinopril TAB* 10 MG PO SCH (08:14)
[2016-09-12] MEDS: Docusate CAP* 100 MG PO SCH ×2 (08:14→21:31)
[2016-09-12] MEDS: amLODIPine TAB* 5 MG PO SCH (08:15)
[2016-09-12] MEDS: Heparin VIAL(*) 5000 UNITS/ML VIAL (FIVE THOUSAND) SUBCUT SCH ×2 (08:15→21:33)
[2016-09-12] MEDS: Atorvastatin* 80 MG TAB PO SCH (17:02)
[2016-09-12] MEDS: Senna TAB PO SCH (21:31)
[2016-09-12] MEDS: CMC: Melatonin (NF) 3 MG TAB PO SCH (21:32)
[2016-09-12] MEDS: [UNRECOGNIZED DRUG - OTHER] SL PRN (21:39)
[2016-09-13] MEDS: amLODIPine TAB* 5 MG PO SCH (08:26)
[2016-09-13] MEDS: Lisinopril TAB* 10 MG PO SCH (08:27)
[2016-09-13] MEDS: Docusate CAP* 100 MG PO SCH (08:28)
[2016-09-13] MEDS: Heparin VIAL(*) 5000 UNITS/ML VIAL (FIVE THOUSAND) SUBCUT SCH ×2 (08:28→21:42)
[2016-09-13] MEDS ORDERED: Docusate CAP* 100 MG PO PRN (09:26)
[2016-09-13] MEDS: Atorvastatin* 80 MG TAB PO SCH (17:10)
[2016-09-13] MEDS ORDERED: Senna TAB PO PRN (21:00)
[2016-09-13] MEDS: CMC: Melatonin (NF) 3 MG TAB PO SCH (21:41)
[2016-09-14] MEDS: amLODIPine TAB* 5 MG PO SCH (09:36)
[2016-09-14] MEDS: Lisinopril TAB* 10 MG PO SCH (09:36)
[2016-09-14] MEDS: Heparin VIAL(*) 5000 UNITS/ML VIAL (FIVE THOUSAND) SUBCUT SCH ×2 (09:37→21:42)
[2016-09-14] MEDS: [UNRECOGNIZED DRUG - OTHER] SL PRN (09:40)
[2016-09-14] MEDS: Atorvastatin* 80 MG TAB PO SCH (17:17)
[2016-09-14] MEDS: CMC: Melatonin (NF) 3 MG TAB PO SCH (21:43)
[2016-09-15] MEDS: amLODIPine TAB* 5 MG PO SCH (09:07)
[2016-09-15] MEDS: Lisinopril TAB* 10 MG PO SCH (09:07)
[2016-09-15] MEDS: Heparin VIAL(*) 5000 UNITS/ML VIAL (FIVE THOUSAND) SUBCUT SCH ×2 (09:07→21:15)
--- NOTE | 2016-09-15 12:41 | PMRUTEAM ---
PMRU: Goals Current Status: Nursing: Current Status Skin Deviations [Left Heel] Other Skin Deviations [Left Hand] Bruise Skin Deviations [Coccyx] Other Skin Deviations [Back] Other Skin Deviations [Right Upper Incision Head] Skin Deviation Description [ red Left Heel] Skin Deviation Description [ bump, infiltrated, patient states is sore Left Hand] Skin Deviation Description [ redness Coccyx] Skin Deviation Description [ reddend Back] Skin Deviation Description [ healing Right Upper Head] Drain Type [Right Upper Head] None Bladder Current Status voiding on bsc or using bedpan Bowel Current Status last bm 09/11/16 Incontinent at times, colace held d/t frequent soft/loose stools Nutrition Current Status poor intake Medication Current Status needs reinforcement Physical Therapy: Current Status Bed Mobility Assistance Min Assist Transfer Moblility Assistance Contact Guard Assist,Min Assist Transfer/Bed Mobility None Recommended Devices Ambulation Assistance Contact Guard Assist,Min Assist Ambulation Assistive Devices Railings Number of Feet Patient 3' foreward and backward in // bars cg to min A x Ambulated 1. Manual Wheelchair Control/ Right UE/Right LE Technique Wheelchair Propulsion Ability Minimum Assistance Wheelchair Distance (ft) 150 Objective Comments patient contineus to have great difficulty with W / c mobiltiy, will drift L and tends to have a serpentine path in mobility. patient continues to have great difficutly with W/c mobility. Occupational Therapy: Current Status Upper Body Dressing Mod Assist Lower Body Dressing Max Asst Bathing Min Assist Toileting Mod Assist Toilet Transfer Min Assist Shower Transfer Min Assist Eating Independent Instrumental ADL Dependent for IADLs Rec Therapy: Current Status Summary of Assessment and RT assessment complete and pt. is aware of Clinical Impression services. Pt. presents as very flat during visits but is polite and voices appreciative. Pt. is very interested in massage therapy and has been active in sessions while on the unit. Treatment Goals Pt. will engage in leisure activities while on the unit. Treatment Plan Provide RT services and encourage involvement. Provide support as needed and assist with the coordination of massage therapy while on the unit. Provided individualized activities for pt. to engage in while in her room. Social Work: Current Status Discharge Plan return home with home care svs and family support Potential for Family Training pt's partner is involved and supportive Anticipated Discharge Home Destination Discharge With home care svs and family support Nutrition: Current Status Monitoring Pt s/p ICH; eating independently. Pt reports reduced appetite here d/t decreased activity. Intake adequate per meal records. Pt prefers smaller portions and foods that are less rich (i.e . more salads vs mashed potatoes and gravy). Made some suggestions she can request - i.e. entree- sized green salads, yogurt, cottage cheese, fruit. Pt appreciative. Soft/liquid BMs noted. No sig nutrition concerns identified. Speech: Current Status Assessment The patient demonstrated improvements with left visual attention for reading, however had difficulty with left visual attention for reading keys on far left of keyboard. The patient continues to benefit from skilled [employer] services for cognitive-linguistic treatment focusing on left visual attention for reading and writing and functional money and time management tasks for improved safety, function and indpenedence for daily living tasks. Goals: Physical Therapy: Initial Goals Bed Mobility Assistance Independent Transfer Mobility Assistance Independent Wheelchair Propulsion Ability Independent Occupational Therapy: Initial Goals Goals to be Completed in (Days 28 days ) Upper Body Bathing Routine Modified Independent with Lower Body Bathing Routine Supervision/Set Up Upper Body Dressing Routine Modified Independent with Lower Body Dressing Routine Modified Independent with Toilet Hygeine and Clothing Modified Independent with Management Routine Toilet Transfer Routine Modified Independent with Step-In Shower Transfer Supervision/Set Up Routine Tub Transfer Routine Supervision/Set Up Functional Transfers for ADL Modified Independent with Grooming Routine Modified Independent with Feeding Routine Supervision/Set Up Nursing: Goals Bladder Goal independent Bowel Goal independent Nutrition Goal 100% of all meals eaten Medication Goal independent Nutrition: Goals Intervention Goals 1. Intake will remain adequate to maintain UBW 2. Pt will maintain regular bowel pattern without constipation/diarrhea Speech: Goals Speech Goal 1 Cognitive-linguistic Goal 1 Comments LTG: The patient will complete functional cognitive-linguistic tasks at 90% accuracy for improved safety, function and independence for daily living tasks. STGs: 1. The patient will complete functional left visual attention for reading and writing tasks at 90% accuracy with min cues. Status: The patient had computer on table tray this date. The patient opened internet and selected tabs without difficulty with mouse with increased time. The patient had deficits when typing with locating keys priamrily to left requiring moderate cues. The patient required assist to set up speech to text with moderate cues with brightly colored iraheta on lower left quadrant to activate. Ongoing. 2. The patient will complete ongoing assessment for functional money and time management tasks with update to POC as warranted. Status: Goal not directly targeted this date. Social Work: Goals Discharge Plan return home with home care svs and family support Potential for Family Training pt's partner is involved and supportive Anticipated Discharge Home Destination Discharge With home care svs and family support Care Plan: Care Plan ADL's - Improve/Maintain Start: 09/03/16 23:19 Freq: DAILY Status: Active Target: Activity Type Activity Date Activity User E-Sign Co-Sign Detail Recorded Client Recorded Date Recorded By Document 09/14/16 10:53 [id number] 09/14/16 10:56 [id number] 09/14/16 10:53 PMRU Outcome: ADL's/ADL Transfers Orders/Interventions Occupational Therapy Evaluation & Treatment Communication Tool in Patient Room Device Yes: w/c, L side arm support on w/c Patient to receive OT 5x/wk for 60-120 Therex min/day Self Care Management Group Therapy Neuromuscular ReEducation UE/LE ADL's with Assist Yes ADL Transfers with Assist Yes Toileting: Transfers,Clothing Management Yes ,Hygeine w/Assist Light Kitchen/Laundry w/Assist Yes Progression Toward Outcome/Goals Progressing Outcome/Goals Met Pt. completed all transfers with min assist x1. Pt. shows improved dynamic sitting balance, as demonstrated by no LOB when seated on shower bench. Communication-Improve/Maintain Start: 09/03/16 23:19 Freq: DAILY Status: Active Target: Activity Type Activity Date Activity User E-Sign Co-Sign Detail Recorded Client Recorded Date Recorded By Document 09/14/16 15:32 [id number] 09/14/16 15:32 [id number] 09/14/16 15:32 PMRU Outcome: Communication/Cognitive Status Outcome/Goals Makes Needs Known Effectively Other Outcomes/Goals The patient will complete functional cognitive- linguistic tasks for increased function safety and independence at 90% accuracy. Progression Toward Outcomes/Goals Progressing Outcome/Goals Met Comment Independent with reading screen on computer. Moderate cues for typing primarily with keys in left lower quadrant. Coping/Psych-Improve/Maintain Start: 09/03/16 23:19 Freq: DAILY Status: Active Target: Activity Type Activity Date Activity User E-Sign Co-Sign Detail Recorded Client Recorded Date Recorded By Document 09/14/16 13:21 [id number] 09/14/16 13:27 [id number] 09/14/16 13:21 PMRU Outcome: Coping/Psychosocial Coping Outcome/Goals Verbalization of Acceptance of Rehab Admit Verbalization of Sense of Control Over Health Status Willingness to Participate in Treatment Plan and Basic Needs Utilization of Available Support Systems Psychosocial Outcome/Goals Maintain/ Improve Emotional Health Cooperate/ Participate in Plan Progression Toward Outcome/Goals - Progressing Coping Progression Toward Outcome/Goals - Progressing Psychosocial DVT Prophylaxis- Improve/Maintain Start: 09/03/16 23:19 Freq: DAILY Status: Active Target: Activity Type Activity Date Activity User E-Sign Co-Sign Detail Recorded Client Recorded Date Recorded By Document 09/14/16 13:21 [id number] 09/14/16 13:27 [id number] 09/14/16 13:21 PMRU Outcome: DVT Prophylaxis Outcome/Goals Remains Free of DVT Complies with DVT Prophylaxis /Treatment Demonstrates Knowledge of DVT Prevention/ Treatment TEDS Stockings on Every AM, Off at HS Other Outcome/Goals declines teds this AM Progression Toward Outcome/Goals Progressing Outcome/Goals Met Remains Free of DVT /GI-Improve/Maintain Start: 09/03/16 23:19 Freq: DAILY Status: Active Target: Activity Type Activity Date Activity User E-Sign Co-Sign Detail Recorded Client Recorded Date Recorded By Document 09/14/16 13:21 [id number] [id number] 09/14/16 13:27 [id number] 09/14/16 13:21 PMRU Outcome: Genitourinary/ Gastrointestinal Genitourinary- Outcome/Goals Maintain/ Achieve Urinary Continence Remain Free of Hospital- Acquired UTI Gastrointestinal-Outcome/Goals Maintain/ Achieve Bowel Regularity in Accordance with Pt's Baseline Remain Free of Emesis Prevent Constipation Bowel Regularity at Home Laxatives as Ordered Progression Toward Outcome/Goals - Progressing Progression Toward Outcome/Goals - GI Progressing Genitourinary- Outcome/Goals Met Maintain/ Achieve Urinary Continence Gastrointestinal-Outcome/Goals Met Remain Free of Emesis Prevent Constipation Mobility- Improve/Maintain Start: 09/03/16 18:01 Freq: DAILY Status: Active Target: Activity Type Activity Date Activity User E-Sign Co-Sign Detail Recorded Client Recorded Date Recorded By Document 09/14/16 12:13 [id number] 09/14/16 12:13 [id number] 09/14/16 12:13 PMRU Outcome: Mobility Physical Therapy Evaluation and Yes Treatment Activity OOB with Assistance Yes WBAT Yes NWB No TTWB No Patient to be seen 5x/wk for 60-120 min/ Therex day for: Mobility Training Gait Training W/C Mobility Balance Outcome/Goals Maintain/ Achieve Baseline Mobility Status Improve Mobility Status Demonstrates Proper Use of Assistive Devices Free from Complications of Immobility Progression Toward Outcome/Goals Progressing Bed Mobility Yes: independent Transfers mod independent W/C Mobility x ft Yes: independent x250ft Neurological- Improve/Maintain Start: 09/03/16 23:19 Freq: DAILY Status: Active Target: Activity Type Activity Date Activity User E-Sign Co-Sign Detail Recorded Client Recorded Date Recorded By Document 09/14/16 13:21 [id number] 09/14/16 13:27 [id number] 09/14/16 13:21 PMRU Outcome: Neurological Weakness/Aphasia Weakness Left Side Outcome/Goals Maintain/ Achieve Baseline Neurological Status Improve Neurological Status Maintain/ Improve Strength/ROM Progression Toward Outcome/Goals Progressing Pain/Comfort- Improve/Maintain Start: 09/03/16 23:19 Freq: DAILY Status: Complete Target: Activity Type Activity Date Activity User E-Sign Co-Sign Detail Recorded Client Recorded Date Recorded By Document 09/13/16 08:00 [id number] 09/13/16 14:43 [id number] 09/13/16 08:00 PMRU Outcome: Pain/Comfort Outcome/Goals Demonstrates Knowledge and Use of Available Comfort Measures Achieves Acceptable Comfort/Pain Level as Determined by Patient/Condit Maintain Comfort Level Allowing Patient to Fully Participate in Rehab Outcome/Goals Met Demonstrates Knowledge and Use of Available Comfort Measures Achieves Acceptable Comfort/Pain Level as Determined by Patient/Condit Safety- Improve/Maintain Start: 09/03/16 23:19 Freq: DAILY Status: Inactive Target: Activity Type Activity Date Activity User E-Sign Co-Sign Detail Recorded Client Recorded Date Recorded By Document 09/08/16 11:13 [id number] 09/08/16 11:15 [id number] 09/08/16 11:13 PMRU Outcome: Safety Outcome/Goals Remain Free of Injury or Harm Cooperates with Safety Measures for Least Restrictive Environment Prevent Falls/ Injury Progression Toward Outcome/Goals Progressing Outcome/Goals Met Cooperates with Safety Measures for Least Restrictive Environment Prevent Falls/ Injury Skin- Improve/Maintain Start: 09/03/16 23:19 Freq: DAILY Status: Complete Target: Activity Type Activity Date Activity User E-Sign Co-Sign Detail Recorded Client Recorded Date Recorded By Document 09/13/16 08:00 [id number] 09/13/16 14:43 [id number] 09/13/16 08:00 PMRU Outcome: Skin Skin Risk Level Medium Skin Orders Dressing Change Air Mattress Dressing Change Comments pillows repositioned Outcome/Goals Maintain/ Improve Skin Intergrity Free from Decubitus Surgical Incisions Healing Outcome/Goals Met Maintain/ Improve Skin Intergrity Free from Decubitus Medicine Note: Length of Stay: 2 1/2 weeks Anticipated Discharge Destination: Home Tentative Discharge Date: 10/02/16 Discharged to: Home
[2016-09-15] MEDS: Atorvastatin* 80 MG TAB PO SCH (16:59)
[2016-09-15] MEDS: CMC: Melatonin (NF) 3 MG TAB PO SCH (21:15)
[2016-09-16] MEDS: Heparin VIAL(*) 5000 UNITS/ML VIAL (FIVE THOUSAND) SUBCUT SCH ×2 (08:41→21:56)
[2016-09-16] MEDS: amLODIPine TAB* 5 MG PO SCH (08:41)
[2016-09-16] MEDS: Lisinopril TAB* 10 MG PO SCH (08:42)
[2016-09-16] MEDS: Atorvastatin* 80 MG TAB PO SCH (17:01)
[2016-09-16] MEDS: CMC: Melatonin (NF) 3 MG TAB PO SCH (21:58)
[2016-09-17] MEDS: amLODIPine TAB* 5 MG PO SCH (08:53)
[2016-09-17] MEDS: Lisinopril TAB* 10 MG PO SCH (08:53)
[2016-09-17] MEDS: Heparin VIAL(*) 5000 UNITS/ML VIAL (FIVE THOUSAND) SUBCUT SCH ×2 (08:53→20:54)
[2016-09-17] MEDS: Atorvastatin* 80 MG TAB PO SCH (17:07)
[2016-09-17] MEDS: CMC: Melatonin (NF) 3 MG TAB PO SCH (20:53)
[2016-09-18 05:42] LABS: Hematocrit 40 % (35-47); Hemoglobin 13.3 g/dl (12.0-16.0); Mean Corpuscular HGB Conc 33 g/dl (31-36); Mean Corpuscular Hemoglobin 33 pg (27-31); Mean Corpuscular Volume 99 fL (80-97); Mean Platelet Volume 8 um3 (7.4-10.4); Red Blood Count 4.06 10^6/ul (4.0-5.4); Red Cell Distribution Width 13 % (10.5-15); White Blood Count 6.7 10^3/ul (3.5-10.8)
[2016-09-18 05:59] LABS: Albumin 3.7 g/dL (3.2-5.2); BUN/Creatinine Ratio 30.2 (8-20); Calcium 8.9 mg/dL (8.6-10.3); EGFR African American 120.9 (>60); Globulin 2.6 g/dL (2-4); Potassium 3.7 mmol/L (3.5-5.0); Total Bilirubin 0.5 mg/dL (0.2-1.0); Total Protein 6.3 g/dL (6.4-8.9)
[2016-09-18] MEDS: amLODIPine TAB* 5 MG PO SCH (08:52)
[2016-09-18] MEDS: Heparin VIAL(*) 5000 UNITS/ML VIAL (FIVE THOUSAND) SUBCUT SCH ×2 (08:52→20:49)
[2016-09-18] MEDS: Lisinopril TAB* 10 MG PO SCH (08:52)
[2016-09-18] MEDS: Atorvastatin* 80 MG TAB PO SCH (17:05)
[2016-09-18] MEDS: CMC: Melatonin (NF) 3 MG TAB PO SCH (20:49)
[2016-09-19] MEDS: Lisinopril TAB* 10 MG PO SCH (09:45)
[2016-09-19] MEDS: amLODIPine TAB* 5 MG PO SCH (09:46)
[2016-09-19] MEDS: Heparin VIAL(*) 5000 UNITS/ML VIAL (FIVE THOUSAND) SUBCUT SCH ×2 (10:40→20:07)
[2016-09-19] MEDS: Atorvastatin* 80 MG TAB PO SCH (17:48)
[2016-09-19] MEDS: CMC: Melatonin (NF) 3 MG TAB PO SCH (20:07)
[2016-09-20] MEDS: Lisinopril TAB* 10 MG PO SCH (08:24)
[2016-09-20] MEDS: amLODIPine TAB* 5 MG PO SCH (08:24)
[2016-09-20] MEDS: Heparin VIAL(*) 5000 UNITS/ML VIAL (FIVE THOUSAND) SUBCUT SCH ×2 (08:25→20:18)
[2016-09-20] MEDS: Atorvastatin* 80 MG TAB PO SCH (17:28)
[2016-09-20] MEDS: CMC: Melatonin (NF) 3 MG TAB PO SCH (20:17)
[2016-09-21] MEDS: Heparin VIAL(*) 5000 UNITS/ML VIAL (FIVE THOUSAND) SUBCUT SCH ×2 (08:44→21:19)
[2016-09-21] MEDS: Lisinopril TAB* 10 MG PO SCH (08:44)
[2016-09-21] MEDS: Atorvastatin* 80 MG TAB PO SCH (17:33)
[2016-09-21] MEDS: CMC: Melatonin (NF) 3 MG TAB PO SCH (21:19)
[2016-09-22] MEDS: Heparin VIAL(*) 5000 UNITS/ML VIAL (FIVE THOUSAND) SUBCUT SCH ×2 (08:52→21:06)
[2016-09-22] MEDS: Lisinopril TAB* 5 MG PO SCH (08:53)
--- NOTE | 2016-09-22 12:43 | PMRUTEAM ---
PMRU: Goals Current Status: Nursing: Current Status Skin Deviations [Left Heel] Other Skin Deviations [Left Hand] Bruise Skin Deviations [Coccyx] Other Skin Deviations [Back] Other Skin Deviations [Right Upper Incision Head] Skin Deviation Description [ red Left Heel] Skin Deviation Description [ bump, infiltrated, patient states is sore Left Hand] Skin Deviation Description [ redness Coccyx] Skin Deviation Description [ reddend Back] Skin Deviation Description [ scar Right Upper Head] Drain Type [Right Upper Head] None Bladder Current Status voiding in bathroom Bowel Current Status last bm 09/21/16 Nutrition Current Status poor intake Medication Current Status needs reinforcement Physical Therapy: Current Status Bed Mobility Assistance Contact Guard Assist,Min Assist Transfer Moblility Assistance Supervision,Contact Guard Assist Transfer/Bed Mobility None Recommended Devices Transfer Mobility Comment Pt. able to perform a SPT with cg to min A x 1. Ambulation Assistance Contact Guard Assist,Min Assist Ambulation Assistive Devices Platform Walker Number of Feet Patient 12' x 2 Ambulated Ambulation Comment Pt. presents a step to type gait. Stairs Assistance Not Tested Curb Not Tested Manual Wheelchair Control/ Right UE/Right LE Technique Wheelchair Propulsion Ability Standby Assistance Wheelchair Distance (ft) 300' Objective Comments patient contineus to have great difficulty with W / c mobiltiy, will drift L and tends to have a serpentine path in mobility. patient continues to have great difficutly with W/c mobility. Occupational Therapy: Current Status Upper Body Dressing Mod Assist Lower Body Dressing Total Assist Bathing Mod Assist Toileting Max Asst Toilet Transfer Contact Guard Assist,Min Assist Toilet Transfer Progress SPT +grab bar with v/c's Shower Transfer Min Assist Shower Transfer Progress SPT w/c to shower bench +grab bar with v/c's Eating Supervision Eating Progress setupA prn Instrumental ADL Dependent for IADLs Rec Therapy: Current Status Summary of Assessment and RT assessment complete and pt. is aware of Clinical Impression services. Pt. presents as very flat during visits but is polite and voices appreciative. Pt. is very interested in massage therapy and has been active in sessions while on the unit. Treatment Goals Pt. will engage in leisure activities while on the unit. Treatment Plan Provide RT services and encourage involvement. Provide support as needed and assist with the coordination of massage therapy while on the unit. Provided individualized activities for pt. to engage in while in her room. Social Work: Current Status Discharge Plan return home with home care svs and family support Potential for Family Training pt's significant other is involved and supportive Anticipated Discharge Home Destination Discharge With home care svs and family support Nutrition: Current Status Monitoring Intake ranging 40-100%, pattern unchanged since admission. Receives a 3 pm snack of alternating cottage cheese and fruited [place] yogurt. Is likely meeting needs since pt prefers smaller amounts given reduced exercise while admitted. BMP WNL as of 09/18. Regular BMs; last BM 09/21. No changes to current intervention indicated. Speech: Current Status Assessment The patient demonstrated improvements with left visual attention for reading and completing functional forms, however she had difficulty with spacing and line tracking for functional visual tasks with writing. The patient continues to benefit from skilled [employer] services for cognitive-linguistic treatment focusing on left visual attention for reading and writing and functional money and time management tasks for improved safety, function and indpenedence for daily living tasks. Goals: Physical Therapy: Initial Goals Bed Mobility Assistance Independent Transfer Mobility Assistance Independent Transfer/Bed Mobility Rolling Walker Recommended Devices Ambulation Independent Ambulation Recommended Devices Rolling Walker Ambulation Distance 150 Wheelchair Propulsion Ability Independent Wheelchair Distance (ft) 150 Stairs Assistance Independent Stair Recommended Devices Two Rails Number of Stairs 5 Home Exercise Program Independent Assistance Physical Therapy: Updated Goals Bed Mobility Assistance Independent Transfer Mobility Assistance Independent Transfer/Bed Mobility Rolling Walker Recommended Devices Ambulation Assistance Independent Ambulation Assistive Devices Rolling Walker Ambulation Distance (ft) 150 Stairs Assistance Independent Stairs Recommended Devices Two Rails Number of Stairs 12 Home Exercise Program Independent Assistance Occupational Therapy: Initial Goals Goals to be Completed in (Days 28 days ) Upper Body Bathing Routine Modified Independent with Lower Body Bathing Routine Supervision/Set Up Upper Body Dressing Routine Modified Independent with Lower Body Dressing Routine Modified Independent with Toilet Hygeine and Clothing Modified Independent with Management Routine Toilet Transfer Routine Modified Independent with Step-In Shower Transfer Supervision/Set Up Routine Tub Transfer Routine Supervision/Set Up Functional Transfers for ADL Modified Independent with Grooming Routine Modified Independent with Feeding Routine Supervision/Set Up Nursing: Goals Bladder Goal independent Bowel Goal independent Nutrition Goal 100% of all meals eaten Medication Goal independent Nutrition: Goals Intervention Goals 1. Intake will remain adequate to maintain UBW 2. Pt will maintain regular bowel pattern without constipation/diarrhea Speech: Goals Speech Goal 1 Cognitive-linguistic Goal 1 Comments LTG: The patient will complete functional cognitive-linguistic tasks at 90% accuracy for improved safety, function and independence for daily living tasks. STGs: 1. The patient will complete functional left visual attention for reading and writing tasks at 90% accuracy with min cues. Status: The patient completed functional health form, answered calendar questions, and addressed envelopes with minimal cues for left attention and spacing. She benefited from blank page for line tracking, however required continuous cues to use. Patient completed form starting at right side, then progressing to left; required cues for left to right tracking for reading. 2. The patient will complete ongoing assessment for functional money and time management tasks with update to POC as warranted. Status: Patient refused money and time-management tasks this date; ongoing as patient agrees. Social Work: Goals Discharge Plan return home with home care svs and family support Potential for Family Training pt's significant other is involved and supportive Anticipated Discharge Home Destination Discharge With home care svs and family support Care Plan: Care Plan ADL's - Improve/Maintain Start: 09/03/16 23:19 Freq: DAILY Status: Active Target: Activity Type Activity Date Activity User E-Sign Co-Sign Detail Recorded Client Recorded Date Recorded By Document 09/22/16 11:56 [id number] 09/22/16 11:57 [id number] 09/22/16 11:56 PMRU Outcome: ADL's/ADL Transfers Orders/Interventions Occupational Therapy Evaluation & Treatment Communication Tool in Patient Room Device Yes: w/c, L side arm support on w/c Patient to receive OT 5x/wk for 60-120 Therex min/day Self Care Management Group Therapy Neuromuscular ReEducation UE/LE ADL's with Assist Yes ADL Transfers with Assist Yes Toileting: Transfers,Clothing Management Yes ,Hygeine w/Assist Light Kitchen/Laundry w/Assist Yes Progression Toward Outcome/Goals Progressing Outcome/Goals Met Pt participated well in OT treatment session, continues to progress with sitting balance and ADL routine, pt pleasant and participated well with UE weight bearing in prone positions this date. Communication-Improve/Maintain Start: 09/03/16 23:19 Freq: DAILY Status: Active Target: Activity Type Activity Date Activity User E-Sign Co-Sign Detail Recorded Client Recorded Date Recorded By Document 09/22/16 11:23 [id number] 09/22/16 11:23 [id number] 09/22/16 11:23 PMRU Outcome: Communication/Cognitive Status Outcome/Goals Makes Needs Known Effectively Other Outcomes/Goals The patient will complete functional cognitive- linguistic tasks for increased function safety and independence at 90% accuracy. Progression Toward Outcomes/Goals Progressing Outcome/Goals Met Comment The patient completed functional health form, answered calendar questions, and addressed envelopes with minimal cues for left attention and spacing. She benefited from blank page for line tracking, however required continuous cues to use. Coping/Psych-Improve/Maintain Start: 09/03/16 23:19 Freq: DAILY Status: Active Target: Activity Type Activity Date Activity User E-Sign Co-Sign Detail Recorded Client Recorded Date Recorded By Document 09/22/16 09:36 [id number] 09/22/16 09:36 [id number] 09/22/16 09:36 PMRU Outcome: Coping/Psychosocial Coping Outcome/Goals Verbalization of Acceptance of Rehab Admit Verbalization of Sense of Control Over Health Status Willingness to Participate in Treatment Plan and Basic Needs Utilization of Available Support Systems Psychosocial Outcome/Goals Maintain/ Improve Emotional Health Cooperate/ Participate in Plan Progression Toward Outcome/Goals - Progressing Coping Progression Toward Outcome/Goals - Progressing Psychosocial Psychosocial Outcome/Goals Met Demonstrated Knowledge of Healthy Coping Mechanisms Available Outcome/Goals Met Comment pt has many visitors throughout the day between therapy, if pt is sleeping visitors with leave and come back at a different time, pt seems to have a lot of emotional support from family/friends DVT Prophylaxis- Improve/Maintain Start: 09/03/16 23:19 Freq: DAILY Status: Complete Target: Activity Type Activity Date Activity User E-Sign Co-Sign Detail Recorded Client Recorded Date Recorded By Document 09/19/16 08:00 [id number] [id number] 09/19/16 13:00 [id number] 09/19/16 08:00 PMRU Outcome: DVT Prophylaxis Outcome/Goals Remains Free of DVT Complies with DVT Prophylaxis /Treatment Demonstrates Knowledge of DVT Prevention/ Treatment TEDS Stockings on Every AM, Off at HS Other Outcome/Goals declines teds this AM Outcome/Goals Met Remains Free of DVT /GI-Improve/Maintain Start: 09/03/16 23:19 Freq: DAILY Status: Complete Target: Activity Type Activity Date Activity User E-Sign Co-Sign Detail Recorded Client Recorded Date Recorded By Document 09/19/16 08:00 [id number] 09/19/16 13:00 [id number] 09/19/16 08:00 PMRU Outcome: Genitourinary/ Gastrointestinal Genitourinary- Outcome/Goals Maintain/ Achieve Urinary Continence Remain Free of Hospital- Acquired UTI Gastrointestinal-Outcome/Goals Maintain/ Achieve Bowel Regularity in Accordance with Pt's Baseline Remain Free of Emesis Prevent Constipation Bowel Regularity at Home Laxatives as Ordered Genitourinary- Outcome/Goals Met Maintain/ Achieve Urinary Continence Gastrointestinal-Outcome/Goals Met Maintain/ Achieve Bowel Regularity in Accordance with Pt's Baseline Remain Free of Emesis Mobility- Improve/Maintain Start: 09/03/16 18:01 Freq: DAILY Status: Active Target: Activity Type Activity Date Activity User E-Sign Co-Sign Detail Recorded Client Recorded Date Recorded By Document 09/18/16 16:40 [id number] 09/19/16 16:40 [id number] 09/18/16 16:40 PMRU Outcome: Mobility Physical Therapy Evaluation and Yes Treatment Activity OOB with Assistance Yes WBAT Yes NWB No TTWB No Patient to be seen 5x/wk for 60-120 min/ Therex day for: Mobility Training Gait Training W/C Mobility Balance Outcome/Goals Maintain/ Achieve Baseline Mobility Status Improve Mobility Status Demonstrates Proper Use of Assistive Devices Free from Complications of Immobility Progression Toward Outcome/Goals Progressing Bed Mobility Yes: independent Transfers mod independent W/C Mobility x ft Yes: independent x250ft Neurological- Improve/Maintain Start: 09/03/16 23:19 Freq: DAILY Status: Active Target: Activity Type Activity Date Activity User E-Sign Co-Sign Detail Recorded Client Recorded Date Recorded By Document 09/22/16 09:36 [id number] 09/22/16 09:36 [id number] 09/22/16 09:36 PMRU Outcome: Neurological Weakness/Aphasia Weakness Left Side Outcome/Goals Maintain/ Achieve Baseline Neurological Status Improve Neurological Status Maintain/ Improve Strength/ROM Progression Toward Outcome/Goals Progressing Pain/Comfort- Improve/Maintain Start: 09/03/16 23:19 Freq: DAILY Status: Complete Target: Activity Type Activity Date Activity User E-Sign Co-Sign Detail Recorded Client Recorded Date Recorded By Document 09/13/16 08:00 [id number] 09/13/16 14:43 [id number] 09/13/16 08:00 PMRU Outcome: Pain/Comfort Outcome/Goals Demonstrates Knowledge and Use of Available Comfort Measures Achieves Acceptable Comfort/Pain Level as Determined by Patient/Condit Maintain Comfort Level Allowing Patient to Fully Participate in Rehab Outcome/Goals Met Demonstrates Knowledge and Use of Available Comfort Measures Achieves Acceptable Comfort/Pain Level as Determined by Patient/Condit Safety- Improve/Maintain Start: 09/03/16 23:19 Freq: DAILY Status: Inactive Target: Activity Type Activity Date Activity User E-Sign Co-Sign Detail Recorded Client Recorded Date Recorded By Document 09/08/16 11:13 [id number] 09/08/16 11:15 [id number] 09/08/16 11:13 PMRU Outcome: Safety Outcome/Goals Remain Free of Injury or Harm Cooperates with Safety Measures for Least Restrictive Environment Prevent Falls/ Injury Progression Toward Outcome/Goals Progressing Outcome/Goals Met Cooperates with Safety Measures for Least Restrictive Environment Prevent Falls/ Injury Skin- Improve/Maintain Start: 09/03/16 23:19 Freq: DAILY Status: Complete Target: Activity Type Activity Date Activity User E-Sign Co-Sign Detail Recorded Client Recorded Date Recorded By Document 09/13/16 08:00 [id number] 09/13/16 14:43 [id number] 09/13/16 08:00 PMRU Outcome: Skin Skin Risk Level Medium Skin Orders Dressing Change Air Mattress Dressing Change Comments pillows repositioned Outcome/Goals Maintain/ Improve Skin Intergrity Free from Decubitus Surgical Incisions Healing Outcome/Goals Met Maintain/ Improve Skin Intergrity Free from Decubitus Medicine Note: Length of Stay: 3 weeks and 2 days Anticipated Discharge Destination: Home Tentative Discharge Date: October 15, 2016 Discharged to: Home
[2016-09-22] MEDS: Atorvastatin* 80 MG TAB PO SCH (17:32)
[2016-09-22] MEDS: CMC: Melatonin (NF) 3 MG TAB PO SCH (21:06)
[2016-09-23] MEDS: Lisinopril TAB* 5 MG PO SCH (08:58)
[2016-09-23] MEDS: Heparin VIAL(*) 5000 UNITS/ML VIAL (FIVE THOUSAND) SUBCUT SCH ×2 (08:58→21:06)
--- NOTE | 2016-09-23 14:36 | RAD ---
HISTORY: Trauma COMPARISONS: August 24, 2016 TECHNIQUE: Multiple contiguous axial CT scans were obtained of the head without intravenous contrast. FINDINGS: HEMORRHAGE/INFARCT: There is residual hypoattenuation in the area of previous parenchymal hemorrhage of the right basal ganglia. There is no acute hemorrhage or infarct. MASSES/SHIFT: There is no mass or shift. EXTRA-AXIAL SPACES: There are no extra-axial fluid collections. SULCI AND VENTRICLES: The sulci and ventricles are normal in size and position for the patient's stated age. CEREBRUM: There is been interval resolution of the right parenchymal hemorrhage. There is hypoattenuation along a right frontal ventriculostomy tract. BRAINSTEM: There are no focal parenchymal abnormalities. CEREBELLUM: There are no focal parenchymal abnormalities. VESSELS: The vessels are grossly normal. PARANASAL SINUSES: The paranasal sinuses are clear. ORBITS: The orbits are unremarkable. BONES AND SOFT TISSUE: There is postsurgical change is still OTHER: None IMPRESSION: 1. INTERVAL RESOLUTION OF THE RIGHT BASAL GANGLIA PARENCHYMAL HEMORRHAGE WITH RESIDUAL HYPOATTENUATION CONSISTENT WITH RESIDUAL EDEMA VERSUS EARLY ENCEPHALOMALACIA. 2. NO ACUTE INTRACRANIAL PATHOLOGY.
--- NOTE | 2016-09-23 14:41 | RAD ---
HISTORY: Neck trauma, fall COMPARISONS: None TECHNIQUE: Multiple contiguous axial CT scans were obtained of the cervical spine without intravenous contrast, with coronal and sagittal multiplanar reformations. FINDINGS: BRAIN: The visualized brain is unremarkable CENTRAL CANAL: Evaluation of the central canal is limited on CT technique; however, there is no obvious canalicular mass or epidural hemorrhage. ALIGNMENT: The alignment is normal, without subluxation or dislocation. VERTEBRAL BODIES: There is multilevel anterolateral marginal osteophyte formation. There is no displaced fracture. JOINTS: There is uncovertebral, facet, and atlantoaxial osteoarthritis MUSCULATURE: Unremarkable INTERVERTEBRAL DISCS: There is diffuse loss of intervertebral disc height. AXIAL IMAGES: C2-C3: There is no osseous neural foraminal narrowing or central canal stenosis. C3-C4: There is bilateral uncovertebral and facet hypertrophy. There is severe bilateral neural foraminal narrowing. There is no osseous central canal stenosis. C4-C5: There is bilateral uncovertebral and facet hypertrophy. There is mild bilateral neuroforaminal narrowing. There is no osseous central canal stenosis. C5-C6: There is bilateral uncovertebral and facet hypertrophy. There is moderate right and mild left neural foraminal narrowing. There is no osseous central canal stenosis. C6-C7: There is no osseous neural foraminal narrowing or central canal stenosis. C7-T1: There is no osseous neural foraminal narrowing or central canal stenosis. SOFT TISSUES: The visualized soft tissues of the neck are unremarkable. The prevertebral fat stripe is preserved. OTHER: On axial image 75, there is a 0.5 cm nodule of the right lung apex. IMPRESSION: 1. DEGENERATIVE DISC DISEASE AND OSTEOARTHRITIS. 2. NO ACUTE OSSEOUS INJURY TO THE CERVICAL SPINE. 3. 0.5 CM NODULE OF THE RIGHT LUNG APEX. THE RECOMMENDATIONS FOR FOLLOWUP AND MANAGEMENT OF AN INCIDENTALLY DETECTED PULMONARY NODULE LESS THAN 6 MM IN SIZE, IN A PATIENT WITHOUT A HISTORY OF MALIGNANCY, INCLUDE NO FOLLOWUP FOR A LOW-RISK PATIENT OR OPTIONAL FOLLOWUP CT IN 12 MONTHS FOR A HIGH RISK PATIENT. NOTES: SIZE = AVERAGE LENGTH AND WIDTH; HIGH RISK IS DEFINED A HISTORY OF SMOKING OR OTHER KNOW RISK FACTORS FOR LUNG CANCER; LOW RISK IS DEFINED MINIMAL OR ABSENT HISTORY OF SMOKING OR OTHER KNOWN RISK FACTORS. Danielle Marie, KRIS Crawley, MELISA Ho, et al (2017) "Guidelines for Management of Incidental Pulmonary Nodules Detected on CT Images: From the Fleischner Society 2017." Radiology; 284(1): 228-243. doi:10.1148/radiol.[id number]
[2016-09-23] MEDS: Atorvastatin* 80 MG TAB PO SCH (17:22)
[2016-09-23] MEDS: CMC: Melatonin (NF) 3 MG TAB PO SCH ×2 (21:08→23:45)
[2016-09-24] MEDS: Heparin VIAL(*) 5000 UNITS/ML VIAL (FIVE THOUSAND) SUBCUT SCH ×2 (09:12→20:00)
[2016-09-24] MEDS: Lisinopril TAB* 5 MG PO SCH (09:12)
[2016-09-24] MEDS: Atorvastatin* 80 MG TAB PO SCH (16:57)
[2016-09-24] MEDS: CMC: Melatonin (NF) 3 MG TAB PO SCH (21:59)
[2016-09-25 05:47] LABS: Hematocrit 40 % (35-47); Hemoglobin 13.2 g/dl (12.0-16.0); Mean Corpuscular HGB Conc 33 g/dl (31-36); Mean Corpuscular Hemoglobin 32 pg (27-31); Mean Corpuscular Volume 98 fL (80-97); Mean Platelet Volume 8 um3 (7.4-10.4); Red Blood Count 4.13 10^6/ul (4.0-5.4); Red Cell Distribution Width 13 % (10.5-15); White Blood Count 7.3 10^3/ul (3.5-10.8)
[2016-09-25 05:58] LABS: Albumin 3.7 g/dL (3.2-5.2); BUN/Creatinine Ratio 25.9 (8-20); Calcium 8.8 mg/dL (8.6-10.3); EGFR Non-African American 103.4 (>60); Globulin 2.6 g/dL (2-4); Potassium 3.8 mmol/L (3.5-5.0); Total Bilirubin 0.5 mg/dL (0.2-1.0); Total Protein 6.3 g/dL (6.4-8.9)
[2016-09-25] MEDS: Lisinopril TAB* 5 MG PO SCH (08:43)
[2016-09-25] MEDS: Heparin VIAL(*) 5000 UNITS/ML VIAL (FIVE THOUSAND) SUBCUT SCH ×2 (08:43→21:15)
[2016-09-25] MEDS: Atorvastatin* 80 MG TAB PO SCH (17:06)
[2016-09-25] MEDS: CMC: Melatonin (NF) 3 MG TAB PO SCH (21:15)
[2016-09-26] MEDS: Lisinopril TAB* 5 MG PO SCH (08:11)
[2016-09-26] MEDS: Heparin VIAL(*) 5000 UNITS/ML VIAL (FIVE THOUSAND) SUBCUT SCH ×2 (08:11→21:58)
[2016-09-26] MEDS: Atorvastatin* 80 MG TAB PO SCH (16:49)
[2016-09-26] MEDS: CMC: Melatonin (NF) 3 MG TAB PO SCH (21:58)
[2016-09-27] MEDS: Lisinopril TAB* 5 MG PO SCH (08:39)
[2016-09-27] MEDS: Heparin VIAL(*) 5000 UNITS/ML VIAL (FIVE THOUSAND) SUBCUT SCH ×2 (08:39→22:09)
[2016-09-27] MEDS: Atorvastatin* 80 MG TAB PO SCH (16:28)
[2016-09-27] MEDS: CMC: Melatonin (NF) 3 MG TAB PO SCH (22:09)
[2016-09-28] MEDS: Lisinopril TAB* 5 MG PO SCH (09:13)
[2016-09-28] MEDS: Heparin VIAL(*) 5000 UNITS/ML VIAL (FIVE THOUSAND) SUBCUT SCH ×2 (09:14→21:06)
[2016-09-28] MEDS: Atorvastatin* 80 MG TAB PO SCH (17:16)
[2016-09-28] MEDS: CMC: Melatonin (NF) 3 MG TAB PO SCH (21:19)
[2016-09-29] MEDS: Lisinopril TAB* 5 MG PO SCH (08:02)
[2016-09-29] MEDS: Heparin VIAL(*) 5000 UNITS/ML VIAL (FIVE THOUSAND) SUBCUT SCH ×2 (08:03→21:25)
--- NOTE | 2016-09-29 12:44 | PMRUTEAM ---
PMRU: Goals Current Status: Nursing: Current Status Skin Deviations [Left Heel] Other Skin Deviations [Left Hand] Bruise Skin Deviations [Coccyx] Other Skin Deviations [Back] Other Skin Deviations [Right Upper Incision Head] Skin Deviation Description [ red Left Heel] Skin Deviation Description [ bump, infiltrated, patient states is sore Left Hand] Skin Deviation Description [ redness Coccyx] Skin Deviation Description [ reddend Back] Skin Deviation Description [ healing incision Right Upper Head] Drain Type [Right Upper Head] None Bladder Current Status voiding in bathroom Bowel Current Status last bm 09/27/16 no bowel meds needed Nutrition Current Status poor intake Medication Current Status supervision Physical Therapy: Current Status Bed Mobility Assistance Supervision Transfer Moblility Assistance Contact Guard Assist Transfer/Bed Mobility None Recommended Devices Transfer Mobility Comment Pt. able to perform a SPT with cg to min A x 1. Ambulation Assistance Supervision,Contact Guard Assist Ambulation Assistive Devices Straight Cane,Piyush Walker Number of Feet Patient 10' x 2 using straight cane and 40' using piyush- Ambulated cane. Ambulation Comment Improving step to type gait. [address]-cane and cg x 1 with w/c to f. Stairs Assistance Supervision Stairs Recommended Devices One Rail Number of Stairs 5 Curb Not Tested Manual Wheelchair Control/ Right UE/Right LE Technique Wheelchair Propulsion Ability Standby Assistance Wheelchair Distance (ft) 300' Objective Comments patient contineus to have great difficulty with W / c mobiltiy, will drift L and tends to have a serpentine path in mobility. patient continues to have great difficutly with W/c mobility. Occupational Therapy: Current Status Upper Body Dressing Mod Assist Lower Body Dressing Max Asst Bathing Mod Assist Toileting Min Assist,Mod Assist Toilet Transfer Contact Guard Assist,Min Assist Toilet Transfer Progress +gait belt, hemiwalker, grab bars Shower Transfer Min Assist Shower Transfer Progress +grab bars/gait belt Eating Supervision Eating Progress setupA prn Instrumental ADL Dependent for IADLs Rec Therapy: Current Status Summary of Assessment and RT assessment complete and pt. is aware of Clinical Impression services. Pt. is polite and voices appreciation of care during visits. Pt. is very interested in massage therapy and has been active in sessions while on the unit. Treatment Goals Pt. will engage in leisure activities while on the unit. Treatment Plan Provide RT services and encourage involvement. Provide support as needed and assist with the coordination of massage therapy while on the unit. Provided individualized activities for pt. to engage in while in her room. Social Work: Current Status Discharge Plan return home with home care svs and family support Potential for Family Training pt's significant other is involved and supportive Anticipated Discharge Home Destination Discharge With home care svs and family support Nutrition: Current Status Monitoring Pt visited 09/24, at which time she stated "fair" appetite with regular diet. PO intake is improving ; average 90-100% of meals x past several days. No swallowing deficits noted; CART PUSHER working w/pt for cog/ling skills. Upon visit, pt claimed reduced appetite due to lack of activity and not being used to eating "pot roast and potatoes - it's too heavy". She was happy to know that deli sandwiches and veggie burgers are available. Pt does not feel as though she wants the 3pm snack any longer, so will d/c the yogurt or cottage cheese per her request. Pt w/o pressure related skin breakdown. Last BM documented 09/27. Labs reviewed; nutritionally pertinent WNL on 09/25. Will continue to monitor. Speech: Current Status Assessment The patient demonstrated improvements with left visual attention for reading on computer screen and keyboard use, however improving from previous session, however she had difficulty with spacing and line tracking for functional visual tasks with and without line tracking cues. The patient continues to benefit from skilled CART PUSHER services for cognitive-linguistic treatment focusing on left visual attention for reading and writing and functional money and time management tasks for improved safety, function and indpenedence for daily living tasks. Goals: Physical Therapy: Initial Goals Bed Mobility Assistance Independent Transfer Mobility Assistance Independent Transfer/Bed Mobility Rolling Walker Recommended Devices Ambulation Independent Ambulation Recommended Devices Rolling Walker Ambulation Distance 150 Wheelchair Propulsion Ability Independent Wheelchair Distance (ft) 150 Stairs Assistance Independent Stair Recommended Devices Two Rails Number of Stairs 5 Home Exercise Program Independent Assistance Physical Therapy: Updated Goals Bed Mobility Assistance Independent Transfer Mobility Assistance Independent Transfer/Bed Mobility Rolling Walker Recommended Devices Ambulation Assistance Independent Ambulation Assistive Devices Rolling Walker Ambulation Distance (ft) 150 Stairs Assistance Independent Stairs Recommended Devices Two Rails Number of Stairs 12 Home Exercise Program Independent Assistance Occupational Therapy: Initial Goals Goals to be Completed in (Days 6 weeks ) Upper Body Bathing Routine Modified Independent with Lower Body Bathing Routine Supervision/Set Up Upper Body Dressing Routine Modified Independent with Lower Body Dressing Routine Modified Independent with Toilet Hygeine and Clothing Modified Independent with Management Routine Toilet Transfer Routine Modified Independent with Step-In Shower Transfer Supervision/Set Up Routine Tub Transfer Routine Supervision/Set Up Functional Transfers for ADL Modified Independent with Grooming Routine Modified Independent with Feeding Routine Supervision/Set Up Nursing: Goals Bladder Goal independent Bowel Goal independent Nutrition Goal 100% of all meals eaten Medication Goal independent Nutrition: Goals Intervention Goals 1. Intake will remain adequate to maintain UBW 2. Pt will maintain regular bowel pattern without constipation/diarrhea Speech: Goals Speech Goal 1 Cognitive-linguistic Goal 1 Comments LTG: The patient will complete functional cognitive-linguistic tasks at 90% accuracy for improved safety, function and independence for daily living tasks. STGs: 1. The patient will complete functional left visual attention for reading and writing tasks at 90% accuracy with min cues. Status: The patient composed an email on her laptop with min-moderate cues for selecting accurate iraheta primarily on left side as the patient often pushed the iraheta above the desired one, for example she pressed the cap lock button instead of shift and the number 3 instead of "E". The patient was using brightly colored sticker for the shift iraheta this date for which assisted with capital / lower case letters with initiating use of left hand to assist as she has regained some strength and coordination. The patient read an email on computer screen with min cues intially only for left side with fatgue after reading two paragraphs. 2. The patient will complete ongoing assessment for functional money and time management tasks with update to POC as warranted. Status: Patient refused money and time-management tasks this date; ongoing as patient agrees. Social Work: Goals Discharge Plan return home with home care svs and family support Potential for Family Training pt's significant other is involved and supportive Anticipated Discharge Home Destination Discharge With home care svs and family support Care Plan: Care Plan ADL's - Improve/Maintain Start: 09/03/16 23:19 Freq: DAILY Status: Active Target: Activity Type Activity Date Activity User E-Sign Co-Sign Detail Recorded Client Recorded Date Recorded By Document 09/28/16 12:14 [id number] 09/28/16 12:15 [id number] 09/28/16 12:14 PMRU Outcome: ADL's/ADL Transfers Orders/Interventions Occupational Therapy Evaluation & Treatment Communication Tool in Patient Room Device Yes: w/c, L side arm support on w/c Patient to receive OT 5x/wk for 60-120 Therex min/day Self Care Management Group Therapy Neuromuscular ReEducation UE/LE ADL's with Assist Yes ADL Transfers with Assist Yes Toileting: Transfers,Clothing Management Yes ,Hygeine w/Assist Light Kitchen/Laundry w/Assist Yes Progression Toward Outcome/Goals Progressing Outcome/Goals Met Pt participated well in OT treatment session, demonstrating increased LUE shoulder AROM with measurement this date. Communication-Improve/Maintain Start: 09/03/16 23:19 Freq: DAILY Status: Active Target: Activity Type Activity Date Activity User E-Sign Co-Sign Detail Recorded Client Recorded Date Recorded By Document 09/28/16 13:05 [id number] [email or web address] 09/28/16 13:05 [id number] 09/28/16 13:05 PMRU Outcome: Communication/Cognitive Status Outcome/Goals Makes Needs Known Effectively Other Outcomes/Goals The patient will complete functional cognitive- linguistic tasks for increased function safety and independence at 90% accuracy. Progression Toward Outcomes/Goals Progressing Outcome/Goals Met Comment The patient required cues for typing on iraheta board, often pushing iraheta above the desired iraheta, min-moderate verbal cues primarily for keys on left. Coping/Psych-Improve/Maintain Start: 09/03/16 23:19 Freq: DAILY Status: Active Target: Activity Type Activity Date Activity User E-Sign Co-Sign Detail Recorded Client Recorded Date Recorded By Document 09/29/16 11:53 [id number] 09/29/16 11:53 [id number] 09/29/16 11:53 PMRU Outcome: Coping/Psychosocial Coping Outcome/Goals Verbalization of Acceptance of Rehab Admit Verbalization of Sense of Control Over Health Status Willingness to Participate in Treatment Plan and Basic Needs Utilization of Available Support Systems Psychosocial Outcome/Goals Maintain/ Improve Emotional Health Cooperate/ Participate in Plan Progression Toward Outcome/Goals - Progressing Coping Progression Toward Outcome/Goals - Progressing Psychosocial Psychosocial Outcome/Goals Met Demonstrated Knowledge of Healthy Coping Mechanisms Available DVT Prophylaxis- Improve/Maintain Start: 09/03/16 23:19 Freq: DAILY Status: Complete Target: Activity Type Activity Date Activity User E-Sign Co-Sign Detail Recorded Client Recorded Date Recorded By Document 09/19/16 08:00 [id number] 09/19/16 13:00 [id number] 09/19/16 08:00 PMRU Outcome: DVT Prophylaxis Outcome/Goals Remains Free of DVT Complies with DVT Prophylaxis /Treatment Demonstrates Knowledge of DVT Prevention/ Treatment TEDS Stockings on Every AM, Off at HS Other Outcome/Goals declines teds this AM Outcome/Goals Met Remains Free of DVT /GI-Improve/Maintain Start: 09/03/16 23:19 Freq: DAILY Status: Complete Target: Activity Type Activity Date Activity User E-Sign Co-Sign Detail Recorded Client Recorded Date Recorded By Document 09/19/16 08:00 [id number] 09/19/16 13:00 [id number] 09/19/16 08:00 PMRU Outcome: Genitourinary/ Gastrointestinal Genitourinary- Outcome/Goals Maintain/ Achieve Urinary Continence Remain Free of Hospital- Acquired UTI Gastrointestinal-Outcome/Goals Maintain/ Achieve Bowel Regularity in Accordance with Pt's Baseline Remain Free of Emesis Prevent Constipation Bowel Regularity at Home Laxatives as Ordered Genitourinary- Outcome/Goals Met Maintain/ Achieve Urinary Continence Gastrointestinal-Outcome/Goals Met Maintain/ Achieve Bowel Regularity in Accordance with Pt's Baseline Remain Free of Emesis Mobility- Improve/Maintain Start: 09/03/16 18:01 Freq: DAILY Status: Active Target: Activity Type Activity Date Activity User E-Sign Co-Sign Detail Recorded Client Recorded Date Recorded By Document 09/29/16 12:08 [id number] 09/29/16 12:08 [id number] 09/29/16 12:08 PMRU Outcome: Mobility Physical Therapy Evaluation and Yes Treatment Activity OOB with Assistance Yes WBAT Yes NWB No TTWB No Patient to be seen 5x/wk for 60-120 min/ Therex day for: Mobility Training Gait Training W/C Mobility Balance Outcome/Goals Maintain/ Achieve Baseline Mobility Status Improve Mobility Status Demonstrates Proper Use of Assistive Devices Free from Complications of Immobility Progression Toward Outcome/Goals Progressing Bed Mobility Yes: independent Transfers mod independent W/C Mobility x ft Yes: independent x250ft Neurological- Improve/Maintain Start: 09/03/16 23:19 Freq: DAILY Status: Active Target: Activity Type Activity Date Activity User E-Sign Co-Sign Detail Recorded Client Recorded Date Recorded By Document 09/29/16 11:53 [id number] 09/29/16 11:53 [id number] 09/29/16 11:53 PMRU Outcome: Neurological Weakness/Aphasia Weakness Left Side Outcome/Goals Maintain/ Achieve Baseline Neurological Status Improve Neurological Status Maintain/ Improve Strength/ROM Progression Toward Outcome/Goals Progressing Outcome/Goals Met Maintain/ Improve Strength/ROM Pain/Comfort- Improve/Maintain Start: 09/03/16 23:19 Freq: DAILY Status: Complete Target: Activity Type Activity Date Activity User E-Sign Co-Sign Detail Recorded Client Recorded Date Recorded By Document 09/13/16 08:00 [id number] 09/13/16 14:43 [id number] 09/13/16 08:00 PMRU Outcome: Pain/Comfort Outcome/Goals Demonstrates Knowledge and Use of Available Comfort Measures Achieves Acceptable Comfort/Pain Level as Determined by Patient/Condit Maintain Comfort Level Allowing Patient to Fully Participate in Rehab Outcome/Goals Met Demonstrates Knowledge and Use of Available Comfort Measures Achieves Acceptable Comfort/Pain Level as Determined by Patient/Condit Safety- Improve/Maintain Start: 09/03/16 23:19 Freq: DAILY Status: Active Target: Activity Type Activity Date Activity User E-Sign Co-Sign Detail Recorded Client Recorded Date Recorded By Document 09/29/16 11:53 [id number] 09/29/16 11:53 [id number] 09/29/16 11:53 PMRU Outcome: Safety Outcome/Goals Remain Free of Injury or Harm Cooperates with Safety Measures for Least Restrictive Environment Prevent Falls/ Injury Other Outcome/Goals New interventions since Fall 09/23: Cannot be left in room alone when up in w/c must be in hallway, PA to remain in place, CB in reach Progression Toward Outcome/Goals Progressing Outcome/Goals Met Cooperates with Safety Measures for Least Restrictive Environment Prevent Falls/ Injury Outcome/Goals Met Comment PA in place, call jaramillo in reach Skin- Improve/Maintain Start: 09/03/16 23:19 Freq: DAILY Status: Complete Target: Activity Type Activity Date Activity User E-Sign Co-Sign Detail Recorded Client Recorded Date Recorded By Document 09/13/16 08:00 [id number] 09/13/16 14:43 [id number] 09/13/16 08:00 PMRU Outcome: Skin Skin Risk Level Medium Skin Orders Dressing Change Air Mattress Dressing Change Comments pillows repositioned Outcome/Goals Maintain/ Improve Skin Intergrity Free from Decubitus Surgical Incisions Healing Outcome/Goals Met Maintain/ Improve Skin Intergrity Free from Decubitus Medicine Note: Length of Stay: 2 weeks, 2 days Anticipated Discharge Destination: Home Tentative Discharge Date: 10/15/16 Discharged to: home
[2016-09-29] MEDS: Atorvastatin* 80 MG TAB PO SCH (17:10)
[2016-09-29] MEDS: CMC: Melatonin (NF) 3 MG TAB PO SCH (21:24)
[2016-09-30] MEDS: Lisinopril TAB* 5 MG PO SCH (08:49)
[2016-09-30] MEDS: Heparin VIAL(*) 5000 UNITS/ML VIAL (FIVE THOUSAND) SUBCUT SCH ×2 (08:50→20:03)
[2016-09-30] MEDS: Atorvastatin* 80 MG TAB PO SCH (16:51)
[2016-09-30] MEDS: CMC: Melatonin (NF) 3 MG TAB PO SCH (21:42)
[2016-10-01] MEDS: Heparin VIAL(*) 5000 UNITS/ML VIAL (FIVE THOUSAND) SUBCUT SCH ×2 (10:06→21:19)
[2016-10-01] MEDS: Lisinopril TAB* 5 MG PO SCH (10:06)
[2016-10-01] MEDS: Atorvastatin* 80 MG TAB PO SCH (17:11)
[2016-10-01] MEDS: CMC: Melatonin (NF) 3 MG TAB PO SCH (21:19)
[2016-10-02] MEDS: Heparin VIAL(*) 5000 UNITS/ML VIAL (FIVE THOUSAND) SUBCUT SCH ×2 (09:36→21:52)
[2016-10-02] MEDS: Lisinopril TAB* 5 MG PO SCH (09:37)
[2016-10-02 10:17] LABS: Hematocrit 39 % (35-47); Hemoglobin 12.8 g/dl (12.0-16.0); Mean Corpuscular HGB Conc 33 g/dl (31-36); Mean Corpuscular Hemoglobin 32 pg (27-31); Mean Corpuscular Volume 97 fL (80-97); Mean Platelet Volume 7 um3 (7.4-10.4); Red Blood Count 3.96 10^6/ul (4.0-5.4); Red Cell Distribution Width 13 % (10.5-15); White Blood Count 7.9 10^3/ul (3.5-10.8)
[2016-10-02 10:39] LABS: Albumin 3.7 g/dL (3.2-5.2); BUN/Creatinine Ratio 18.3 (8-20); Calcium 9.4 mg/dL (8.6-10.3); EGFR African American 105.3 (>60); EGFR Non-African American 81.9 (>60); Globulin 2.5 g/dL (2-4); Potassium 3.6 mmol/L (3.5-5.0); Total Bilirubin 0.5 mg/dL (0.2-1.0); Total Protein 6.2 g/dL (6.4-8.9)
[2016-10-02] MEDS: Atorvastatin* 80 MG TAB PO SCH (18:11)
[2016-10-02] MEDS: CMC: Melatonin (NF) 3 MG TAB PO SCH (21:52)
[2016-10-03] MEDS: Heparin VIAL(*) 5000 UNITS/ML VIAL (FIVE THOUSAND) SUBCUT SCH ×2 (08:12→21:06)
[2016-10-03] MEDS: Lisinopril TAB* 5 MG PO SCH (08:12)
[2016-10-03] MEDS: Atorvastatin* 80 MG TAB PO SCH (17:12)
[2016-10-03] MEDS: CMC: Melatonin (NF) 3 MG TAB PO SCH (21:06)
[2016-10-04] MEDS: Lisinopril TAB* 5 MG PO SCH (08:40)
[2016-10-04] MEDS: Heparin VIAL(*) 5000 UNITS/ML VIAL (FIVE THOUSAND) SUBCUT SCH ×2 (08:40→21:34)
[2016-10-04] MEDS: Atorvastatin* 80 MG TAB PO SCH (17:01)
[2016-10-04] MEDS: CMC: Melatonin (NF) 3 MG TAB PO SCH (21:33)
[2016-10-05] MEDS: Lisinopril TAB* 5 MG PO SCH (08:42)
[2016-10-05] MEDS: Heparin VIAL(*) 5000 UNITS/ML VIAL (FIVE THOUSAND) SUBCUT SCH ×2 (08:44→21:07)
[2016-10-05] MEDS: Atorvastatin* 80 MG TAB PO SCH (17:30)
[2016-10-05] MEDS: CMC: Melatonin (NF) 3 MG TAB PO SCH ×2 (21:58→23:17)
[2016-10-06] MEDS: Heparin VIAL(*) 5000 UNITS/ML VIAL (FIVE THOUSAND) SUBCUT SCH ×2 (08:23→21:39)
[2016-10-06] MEDS: Lisinopril TAB* 5 MG PO SCH (08:24)
--- NOTE | 2016-10-06 12:46 | PMRUTEAM ---
PMRU: Goals Current Status: Nursing: Current Status Skin Deviations [Left Heel] Other Skin Deviations [Left Hand] Bruise Skin Deviations [Coccyx] Other Skin Deviations [Back] Other Skin Deviations [Right Upper Incision Head] Skin Deviation Description [ red Left Heel] Skin Deviation Description [ healing well Left Hand] Skin Deviation Description [ redness Coccyx] Skin Deviation Description [ reddend Back] Skin Deviation Description [ healed Right Upper Head] Drain Type [Right Upper Head] None Bladder Current Status voiding in bathroom Bowel Current Status last bm 10/06/16 no bowel meds needed Nutrition Current Status adequate intake Medication Current Status supervision Physical Therapy: Current Status Bed Mobility Assistance Supervision Transfer Moblility Assistance Contact Guard Assist Transfer/Bed Mobility None Recommended Devices Transfer Mobility Comment Pt. is able to perform a SPT cg x 1 without an assistive device. Ambulation Assistance Supervision,Contact Guard Assist Ambulation Assistive Devices None,Straight Cane,Piyush Walker Number of Feet Patient 40' x 3 Ambulated Ambulation Comment cg x [address]-cane and S x 1 using piyush-cane. Stairs Assistance Supervision,Contact Guard Assist Stairs Recommended Devices One Rail Number of Stairs 12 Curb Not Tested Manual Wheelchair Control/ Right UE/Right LE Technique Wheelchair Propulsion Ability Standby Assistance Wheelchair Distance (ft) 150 Objective Comments patient contineus to have great difficulty with W / c mobiltiy, will drift L and tends to have a serpentine path in mobility. patient continues to have great difficutly with W/c mobility. Occupational Therapy: Current Status Upper Body Dressing Supervision Lower Body Dressing Mod Assist Bathing Contact Guard Assist,Min Assist Toileting Min Assist Toilet Transfer Contact Guard Assist Toilet Transfer Progress +gait belt, hemiwalker, grab bars Shower Transfer Contact Guard Assist,Min Assist Shower Transfer Progress +grab bars/gait belt Eating Independent Eating Progress setupA prn Instrumental ADL Dependent for IADLs Rec Therapy: Current Status Summary of Assessment and RT assessment complete and pt. is aware of Clinical Impression services. Pt. is polite and voices appreciation of care during visits. Pt. is very interested in massage therapy and has been active in sessions while on the unit. Treatment Goals Pt. will engage in leisure activities while on the unit. Treatment Plan Provide RT services and encourage involvement. Provide support as needed and assist with the coordination of massage therapy while on the unit. Provided individualized activities for pt. to engage in while in her room. Social Work: Current Status Discharge Plan return home with home care svs and family support Potential for Family Training pt's partner is involved and supportive Anticipated Discharge Home Destination Discharge With VNS and family support Nutrition: Current Status Monitoring eating well on a regular diet; has requested small portions. BMs 10/03, 10/06. Note elevation of LFTs. Lipitor was recently started within past month (? 09/04); otherwise, no past medical hx to explain rise of LFTs. Appears to be meeting goals as outlined below. Speech: Current Status Assessment The patient demonstrated continued improvement with left visual attention for reading computer screen and keyboard use, however she had difficulty with spacing and line tracking for functional visual tasks on menu x1 and mock check writing x1. The patient continues to benefit from skilled GRINDING MACHINE OPERATOR PORTABLE services for cognitive-linguistic treatment focusing on left visual attention for reading and writing and functional money and time management tasks for improved safety, function and indpenedence for daily living tasks. Goals: Physical Therapy: Initial Goals Bed Mobility Assistance Independent Transfer Mobility Assistance Independent Transfer/Bed Mobility Rolling Walker Recommended Devices Ambulation Independent Ambulation Recommended Devices Rolling Walker Ambulation Distance 150 Wheelchair Propulsion Ability Independent Wheelchair Distance (ft) 150 Stairs Assistance Independent Stair Recommended Devices Two Rails Number of Stairs 5 Home Exercise Program Independent Assistance Physical Therapy: Updated Goals Bed Mobility Assistance Independent Transfer Mobility Assistance Independent Transfer/Bed Mobility Rolling Walker Recommended Devices Ambulation Assistance Independent Ambulation Assistive Devices Piyush Walker Ambulation Distance (ft) 150 Stairs Assistance Independent Stairs Recommended Devices Two Rails Number of Stairs 12 Home Exercise Program Independent Assistance Occupational Therapy: Initial Goals Goals to be Completed in (Days 6 weeks ) Upper Body Bathing Routine Modified Independent with Lower Body Bathing Routine Supervision/Set Up Upper Body Dressing Routine Modified Independent with Lower Body Dressing Routine Modified Independent with Toilet Hygeine and Clothing Modified Independent with Management Routine Toilet Transfer Routine Modified Independent with Step-In Shower Transfer Supervision/Set Up Routine Tub Transfer Routine Supervision/Set Up Functional Transfers for ADL Modified Independent with Grooming Routine Modified Independent with Feeding Routine Supervision/Set Up Nursing: Goals Bladder Goal independent Bowel Goal independent Nutrition Goal 100% of all meals eaten Medication Goal independent Nutrition: Goals Intervention Goals 1. Intake will remain adequate to maintain UBW 2. Pt will maintain regular bowel pattern without constipation/diarrhea Speech: Goals Speech Goal 1 Cognitive-linguistic Goal 1 Comments LTG: The patient will complete functional cognitive-linguistic tasks at 90% accuracy for improved safety, function and independence for daily living tasks. STGs: 1. The patient will complete functional left visual attention for reading and writing tasks at 90% accuracy with min cues. Status: The patient read a conversations from [employer] system on her computer screen with with initial cues only for left side. The patient required occasional min cues for line tracking particularly on left when using mouse. The patient circled menu items independently with exception of circling above desired item x1 and correced with min cues. The patient wrote mock checks independnetly with exception x1 where patient wrote amount numerically on the line amove the designated line. 2. The patient will complete ongoing assessment for functional money and time management tasks with update to POC as warranted. Status: Patient refused money and time-management tasks this date, however agreeable to mock checks - see status above; ongoing as patient agrees. Social Work: Goals Discharge Plan return home with home care svs and family support Potential for Family Training pt's partner is involved and supportive Anticipated Discharge Home Destination Discharge With VNS and family support Care Plan: Care Plan ADL's - Improve/Maintain Start: 09/03/16 23:19 Freq: DAILY Status: Active Target: Activity Type Activity Date Activity User E-Sign Co-Sign Detail Recorded Client Recorded Date Recorded By Document 10/05/16 16:30 [id number] [id number] 10/05/16 16:30 [id number] 10/05/16 16:30 PMRU Outcome: ADL's/ADL Transfers Orders/Interventions Occupational Therapy Evaluation & Treatment Communication Tool in Patient Room Device Yes: w/c, L side arm support on w/c Patient to receive OT 5x/wk for 60-120 Therex min/day Self Care Management Group Therapy Neuromuscular ReEducation UE/LE ADL's with Assist Yes ADL Transfers with Assist Yes Toileting: Transfers,Clothing Management Yes ,Hygeine w/Assist Light Kitchen/Laundry w/Assist Yes Progression Toward Outcome/Goals Progressing Outcome/Goals Met increased LUE strength Communication-Improve/Maintain Start: 09/03/16 23:19 Freq: DAILY Status: Active Target: Activity Type Activity Date Activity User E-Sign Co-Sign Detail Recorded Client Recorded Date Recorded By Document 10/05/16 12:22 [id number] [email or web address] 10/05/16 12:22 [id number] 10/05/16 12:22 PMRU Outcome: Communication/Cognitive Status Outcome/Goals Makes Needs Known Effectively Other Outcomes/Goals The patient will complete functional cognitive- linguistic tasks for increased function safety and independence at 90% accuracy. Progression Toward Outcomes/Goals Progressing Outcome/Goals Met Comment Occasional min cues for left visual attention/line tracking Coping/Psych-Improve/Maintain Start: 09/03/16 23:19 Freq: DAILY Status: Complete Target: Activity Type Activity Date Activity User E-Sign Co-Sign Detail Recorded Client Recorded Date Recorded By Document 10/03/16 18:24 [id number] [id number] 10/03/16 18:24 [id number] 10/03/16 18:24 PMRU Outcome: Coping/Psychosocial Coping Outcome/Goals Verbalization of Acceptance of Rehab Admit Verbalization of Sense of Control Over Health Status Willingness to Participate in Treatment Plan and Basic Needs Utilization of Available Support Systems Psychosocial Outcome/Goals Maintain/ Improve Emotional Health Cooperate/ Participate in Plan Progression Toward Outcome/Goals - Progressing Coping Progression Toward Outcome/Goals - Progressing Psychosocial Psychosocial Outcome/Goals Met Maintain/ Improved Emotional Health Demonstrated Knowledge of Healthy Coping Mechanisms Available DVT Prophylaxis- Improve/Maintain Start: 09/03/16 23:19 Freq: DAILY Status: Complete Target: Activity Type Activity Date Activity User E-Sign Co-Sign Detail Recorded Client Recorded Date Recorded By Document 09/19/16 08:00 [id number] [id number] 09/19/16 13:00 [id number] 09/19/16 08:00 PMRU Outcome: DVT Prophylaxis Outcome/Goals Remains Free of DVT Complies with DVT Prophylaxis /Treatment Demonstrates Knowledge of DVT Prevention/ Treatment TEDS Stockings on Every AM, Off at HS Other Outcome/Goals declines teds this AM Outcome/Goals Met Remains Free of DVT /GI-Improve/Maintain Start: 09/03/16 23:19 Freq: DAILY Status: Complete Target: Activity Type Activity Date Activity User E-Sign Co-Sign Detail Recorded Client Recorded Date Recorded By Document 09/19/16 08:00 [id number] 09/19/16 13:00 [id number] 09/19/16 08:00 PMRU Outcome: Genitourinary/ Gastrointestinal Genitourinary- Outcome/Goals Maintain/ Achieve Urinary Continence Remain Free of Hospital- Acquired UTI Gastrointestinal-Outcome/Goals Maintain/ Achieve Bowel Regularity in Accordance with Pt's Baseline Remain Free of Emesis Prevent Constipation Bowel Regularity at Home Laxatives as Ordered Genitourinary- Outcome/Goals Met Maintain/ Achieve Urinary Continence Gastrointestinal-Outcome/Goals Met Maintain/ Achieve Bowel Regularity in Accordance with Pt's Baseline Remain Free of Emesis Mobility- Improve/Maintain Start: 09/03/16 18:01 Freq: DAILY Status: Active Target: Activity Type Activity Date Activity User E-Sign Co-Sign Detail Recorded Client Recorded Date Recorded By Document 10/05/16 14:51 [id number] [id number] 10/05/16 14:51 [id number] 10/05/16 14:51 PMRU Outcome: Mobility Physical Therapy Evaluation and Yes Treatment Activity OOB with Assistance Yes WBAT Yes NWB No TTWB No Patient to be seen 5x/wk for 60-120 min/ Therex day for: Mobility Training Gait Training W/C Mobility Balance Outcome/Goals Maintain/ Achieve Baseline Mobility Status Improve Mobility Status Demonstrates Proper Use of Assistive Devices Free from Complications of Immobility Progression Toward Outcome/Goals Progressing Bed Mobility Yes: independent Transfers mod independent W/C Mobility x ft Yes: independent x250ft Neurological- Improve/Maintain Start: 09/03/16 23:19 Freq: DAILY Status: Active Target: Activity Type Activity Date Activity User E-Sign Co-Sign Detail Recorded Client Recorded Date Recorded By Document 10/06/16 10:00 [id number] 10/06/16 10:00 [id number] 10/06/16 10:00 PMRU Outcome: Neurological Weakness/Aphasia Weakness Left Side Outcome/Goals Maintain/ Achieve Baseline Neurological Status Improve Neurological Status Maintain/ Improve Strength/ROM Progression Toward Outcome/Goals Progressing Outcome/Goals Met Maintain/ Improve Strength/ROM Pain/Comfort- Improve/Maintain Start: 09/03/16 23:19 Freq: DAILY Status: Complete Target: Activity Type Activity Date Activity User E-Sign Co-Sign Detail Recorded Client Recorded Date Recorded By Document 09/13/16 08:00 [id number] 09/13/16 14:43 [id number] 09/13/16 08:00 PMRU Outcome: Pain/Comfort Outcome/Goals Demonstrates Knowledge and Use of Available Comfort Measures Achieves Acceptable Comfort/Pain Level as Determined by Patient/Condit Maintain Comfort Level Allowing Patient to Fully Participate in Rehab Outcome/Goals Met Demonstrates Knowledge and Use of Available Comfort Measures Achieves Acceptable Comfort/Pain Level as Determined by Patient/Condit Safety- Improve/Maintain Start: 09/03/16 23:19 Freq: DAILY Status: Active Target: Activity Type Activity Date Activity User E-Sign Co-Sign Detail Recorded Client Recorded Date Recorded By Document 10/06/16 10:00 [id number] 10/06/16 10:00 [id number] 10/06/16 10:00 PMRU Outcome: Safety Outcome/Goals Remain Free of Injury or Harm Cooperates with Safety Measures for Least Restrictive Environment Prevent Falls/ Injury Other Outcome/Goals New interventions since Fall 09/23: Cannot be left in room alone when up in w/c must be in hallway, PA to remain in place, CB in reach Progression Toward Outcome/Goals Progressing Outcome/Goals Met Cooperates with Safety Measures for Least Restrictive Environment Prevent Falls/ Injury Outcome/Goals Met Comment PA in place, call jaramillo in reach Skin- Improve/Maintain Start: 09/03/16 23:19 Freq: DAILY Status: Complete Target: Activity Type Activity Date Activity User E-Sign Co-Sign Detail Recorded Client Recorded Date Recorded By Document 09/13/16 08:00 [id number] 09/13/16 14:43 [id number] 09/13/16 08:00 PMRU Outcome: Skin Skin Risk Level Medium Skin Orders Dressing Change Air Mattress Dressing Change Comments pillows repositioned Outcome/Goals Maintain/ Improve Skin Intergrity Free from Decubitus Surgical Incisions Healing Outcome/Goals Met Maintain/ Improve Skin Intergrity Free from Decubitus Medicine Note: Length of Stay: 9 days Anticipated Discharge Destination: Home Tentative Discharge Date: 10/15/16 Discharged to: Home
[2016-10-06] MEDS: Atorvastatin* 10 MG TAB PO SCH (17:29)
[2016-10-06] MEDS: CMC: Melatonin (NF) 3 MG TAB PO SCH (21:39)
[2016-10-07] MEDS: Lisinopril TAB* 5 MG PO SCH (08:07)
[2016-10-07] MEDS: Heparin VIAL(*) 5000 UNITS/ML VIAL (FIVE THOUSAND) SUBCUT SCH ×2 (08:07→20:51)
[2016-10-07] MEDS: Atorvastatin* 10 MG TAB PO SCH (17:00)
[2016-10-07] MEDS: CMC: Melatonin (NF) 3 MG TAB PO SCH (20:51)
[2016-10-08] MEDS: Lisinopril TAB* 5 MG PO SCH (08:46)
[2016-10-08] MEDS: Heparin VIAL(*) 5000 UNITS/ML VIAL (FIVE THOUSAND) SUBCUT SCH ×2 (08:47→21:26)
[2016-10-08] MEDS: Atorvastatin* 10 MG TAB PO SCH (17:01)
[2016-10-08] MEDS: CMC: Melatonin (NF) 3 MG TAB PO SCH (21:25)
[2016-10-09 06:56] LABS: Hematocrit 38 % (35-47); Mean Corpuscular HGB Conc 34 g/dl (31-36); Mean Corpuscular Hemoglobin 34 pg (27-31); Mean Corpuscular Volume 98 fL (80-97); Mean Platelet Volume 7 um3 (7.4-10.4); Red Blood Count 3.86 10^6/ul (4.0-5.4); Red Cell Distribution Width 13 % (10.5-15); White Blood Count 6.7 10^3/ul (3.5-10.8)
[2016-10-09 07:13] LABS: Albumin 3.8 g/dL (3.2-5.2); BUN/Creatinine Ratio 23.3 (8-20); Calcium 9.3 mg/dL (8.6-10.3); EGFR African American 127.9 (>60); EGFR Non-African American 99.4 (>60); Globulin 2.4 g/dL (2-4); Potassium 3.7 mmol/L (3.5-5.0); Total Bilirubin 0.6 mg/dL (0.2-1.0); Total Protein 6.2 g/dL (6.4-8.9)
[2016-10-09] MEDS: Lisinopril TAB* 5 MG PO SCH (08:06)
[2016-10-09] MEDS: Heparin VIAL(*) 5000 UNITS/ML VIAL (FIVE THOUSAND) SUBCUT SCH ×2 (08:06→21:14)
[2016-10-09] MEDS: Atorvastatin* 10 MG TAB PO SCH (17:12)
[2016-10-09] MEDS: CMC: Melatonin (NF) 3 MG TAB PO SCH (21:14)
[2016-10-10] MEDS: Heparin VIAL(*) 5000 UNITS/ML VIAL (FIVE THOUSAND) SUBCUT SCH ×2 (08:14→22:14)
[2016-10-10] MEDS: Lisinopril TAB* 5 MG PO SCH (08:15)
[2016-10-10] MEDS: Atorvastatin* 10 MG TAB PO SCH (16:48)
[2016-10-10] MEDS: CMC: Melatonin (NF) 3 MG TAB PO SCH (22:13)
[2016-10-11] MEDS: Heparin VIAL(*) 5000 UNITS/ML VIAL (FIVE THOUSAND) SUBCUT SCH ×2 (08:17→21:51)
[2016-10-11] MEDS: Atorvastatin* 10 MG TAB PO SCH (17:41)
[2016-10-11] MEDS: CMC: Melatonin (NF) 3 MG TAB PO SCH (21:51)
[2016-10-12] MEDS: Heparin VIAL(*) 5000 UNITS/ML VIAL (FIVE THOUSAND) SUBCUT SCH ×2 (08:13→21:11)
[2016-10-12] MEDS: Atorvastatin* 10 MG TAB PO SCH (16:50)
[2016-10-12] MEDS: CMC: Melatonin (NF) 3 MG TAB PO SCH (21:11)
[2016-10-13] MEDS: Heparin VIAL(*) 5000 UNITS/ML VIAL (FIVE THOUSAND) SUBCUT SCH ×2 (08:47→20:46)
--- NOTE | 2016-10-13 12:27 | PMRUTEAM ---
PMRU: Goals Current Status: Nursing: Current Status Skin Deviations [Left Upper Abrasion Arm] Skin Deviations [Left Heel] Other Skin Deviations [Left Hand] Abrasion Skin Deviations [Coccyx] Other Skin Deviations [Back] Other Skin Deviations [Right Upper Incision Head] Skin Deviation Description [ area washed with soap and water. xeroform, 2x2 and Left Upper Arm] tegaderm applied. slight improvement noted. Skin Deviation Description [ red Left Heel] Skin Deviation Description [ sore Left Hand] Skin Deviation Description [ redness Coccyx] Skin Deviation Description [ reddend Back] Skin Deviation Description [ healed Right Upper Head] Drain Type [Left Upper Arm] None Drain Type [Right Upper Head] None Bladder Current Status voiding in bathroom Bowel Current Status last bm 10/06/16 no bowel meds needed Nutrition Current Status adequate intake Medication Current Status supervision Physical Therapy: Current Status Bed Mobility Assistance Supervision Transfer Moblility Assistance Supervision Transfer/Bed Mobility Piyush Walker Recommended Devices Transfer Mobility Comment Pt. is able to perform a SPT cg x 1 without an assistive device. Ambulation Assistance Supervision Ambulation Assistive Devices Piyush Walker Number of Feet Patient 150 x 2, 300 Ambulated Ambulation Comment cg x [address]-cane and S x 1 using piyush-cane. Stairs Assistance Supervision Stairs Recommended Devices Two Rails Number of Stairs 2x5 Curb Not Tested Manual Wheelchair Control/ Right UE/Right LE Technique Wheelchair Propulsion Ability Standby Assistance Wheelchair Distance (ft) 150 Objective Comments patient contineus to have great difficulty with W / c mobiltiy, will drift L and tends to have a serpentine path in mobility. patient continues to have great difficutly with W/c mobility. Occupational Therapy: Current Status Upper Body Dressing Supervision Lower Body Dressing Contact Guard Assist Bathing Contact Guard Assist Toileting Contact Guard Assist Toilet Transfer Contact Guard Assist Toilet Transfer Progress +gait belt, hemiwalker, grab bars Shower Transfer Contact Guard Assist Shower Transfer Progress +grab bars/gait belt Eating Independent Eating Progress setupA prn Instrumental ADL Pt participated in meal prep task in OT kitchen in co-treatment with speech therapy. Pt completed SPT bed to w/c with closeS to right side. Pt able to complete sit to/from stand at sink with supervision to complete hand hygiene with CGA as well as rinsing grapes in colander with CGA only for balance. Pt completed placing and mixing ingredients to make fruit dip using Grzegorz UEs to scoop cream cheese and marshmallow fluff into bowl , also able to pour milk in as needed, assist to transfer bowl onto mixing stand, pt able to utilize stand mixer using mostly RUE for controls. Seated at table in w/c, pt able to cut tops off and slice strawberries using LUE to stabilize pieces of fruit and RUE to complete cutting with plastic knife, pt able to take tops of strawberries, pick up truck driver with LUE and drop into trash can on left side. Pt able to peel and slice banana, again using LUE to stabilize and RUE to slice. Pt able to place fruit including strawberries, bananas, grapes, and pineapple onto skewers. Pt requiring min cues throughout to increase use of LUE as well as opening digits prior to grasping. Rec Therapy: Current Status Summary of Assessment and RT assessment complete and pt. is aware of Clinical Impression services. Pt. is polite and voices appreciation of care during visits. Pt. is very interested in massage therapy and has been active in sessions while on the unit. Treatment Goals Pt. will engage in leisure activities while on the unit. Treatment Plan Provide RT services and encourage involvement. Provide support as needed and assist with the coordination of massage therapy while on the unit. Provided individualized activities for pt. to engage in while in her room. Social Work: Current Status Discharge Plan return home with home care svs and family support Potential for Family Training pt's partner is involved and supportive Anticipated Discharge Home Destination Discharge With VNS and family support Nutrition: Current Status Monitoring continues to eat well on a regular diet (small portions). No swallowing deficits. BMs 9/3 and this a.m. Lipitor was recently started last month ; rise of LFTs is showing some decline this week. Lipitor continues. Appears to be meeting goals as outlined below. Speech: Current Status Assessment The patient required no cues for left visual attention for single reading task. Session was focused on family education on cognitive- linguistic as stated above. Goals: Physical Therapy: Initial Goals Bed Mobility Assistance Independent Transfer Mobility Assistance Independent Transfer/Bed Mobility Rolling Walker Recommended Devices Ambulation Independent Ambulation Recommended Devices Rolling Walker Ambulation Distance 150 Wheelchair Propulsion Ability Independent Wheelchair Distance (ft) 150 Stairs Assistance Independent Stair Recommended Devices Two Rails Number of Stairs 5 Home Exercise Program Independent Assistance Physical Therapy: Updated Goals Bed Mobility Assistance Independent Transfer Mobility Assistance Independent Transfer/Bed Mobility Rolling Walker Recommended Devices Ambulation Assistance Independent Ambulation Assistive Devices Piyush Walker Ambulation Distance (ft) 150 Stairs Assistance Independent Stairs Recommended Devices Two Rails Number of Stairs 12 Home Exercise Program Independent Assistance Occupational Therapy: Initial Goals Goals to be Completed in (Days 6 weeks ) Upper Body Bathing Routine Modified Independent with Lower Body Bathing Routine Supervision/Set Up Upper Body Dressing Routine Modified Independent with Lower Body Dressing Routine Modified Independent with Toilet Hygeine and Clothing Modified Independent with Management Routine Toilet Transfer Routine Modified Independent with Step-In Shower Transfer Supervision/Set Up Routine Tub Transfer Routine Supervision/Set Up Functional Transfers for ADL Modified Independent with Grooming Routine Modified Independent with Feeding Routine Supervision/Set Up Nursing: Goals Bladder Goal independent Bowel Goal independent Nutrition Goal 100% of all meals eaten Medication Goal independent Nutrition: Goals Intervention Goals 1. Intake will remain adequate to maintain UBW 2. Pt will maintain regular bowel pattern without constipation/diarrhea Speech: Goals Speech Goal 1 Cognitive-linguistic Goal 1 Comments LTG: The patient will complete functional cognitive-linguistic tasks at 90% accuracy for improved safety, function and independence for daily living tasks. STGs: 1. The patient will complete functional left visual attention for reading and writing tasks at 90% accuracy with min cues. Status: The patient read single paragraph without cues this date with mildly increased time. Status as of 10/09/16: The patient completed a deduction puzzle targeting left attention for reading and writing. No cues required for left attention, however minimal cues required for spacing difficulties while writing in boxes ( suspect visual deficit) 2. The patient will complete ongoing assessment for functional money and time management tasks with update to POC as warranted. Status as of 10/07/16: The patient completed functional appoximations for cooking activity with OT for how much of a container would need to be used for the recipe based on how many ounces were in the container with min cues. Social Work: Goals Discharge Plan return home with home care svs and family support Potential for Family Training pt's partner is involved and supportive Anticipated Discharge Home Destination Discharge With VNS and family support Care Plan: Care Plan ADL's - Improve/Maintain Start: 09/03/16 23:19 Freq: DAILY Status: Active Target: Activity Type Activity Date Activity User E-Sign Co-Sign Detail Recorded Client Recorded Date Recorded By Document 10/09/16 14:06 [id number] 10/09/16 14:07 [id number] 10/09/16 14:06 PMRU Outcome: ADL's/ADL Transfers Orders/Interventions Occupational Therapy Evaluation & Treatment Communication Tool in Patient Room Device Yes: w/c, L side arm support on w/c Patient to receive OT 5x/wk for 60-120 Therex min/day Self Care Management Group Therapy Neuromuscular ReEducation UE/LE ADL's with Assist Yes ADL Transfers with Assist Yes Toileting: Transfers,Clothing Management Yes ,Hygeine w/Assist Light Kitchen/Laundry w/Assist Yes Progression Toward Outcome/Goals Progressing Outcome/Goals Met Pt participated well in OT treatment session, LOB during pm treatment session when turning to right to sit in chair, discussed with PT. Communication-Improve/Maintain Start: 09/03/16 23:19 Freq: DAILY Status: Active Target: Activity Type Activity Date Activity User E-Sign Co-Sign Detail Recorded Client Recorded Date Recorded By Document 10/13/16 11:53 [id number] 10/13/16 11:53 [id number] 10/13/16 11:53 PMRU Outcome: Communication/Cognitive Status Outcome/Goals Makes Needs Known Effectively Other Outcomes/Goals The patient will complete functional cognitive- linguistic tasks for increased function safety and independence at 90% accuracy. Progression Toward Outcomes/Goals Progressing Outcome/Goals Met Comment No cues for reading paragraphs this date with increased time. Family training and education completed. See note for details. Coping/Psych-Improve/Maintain Start: 09/03/16 23:19 Freq: DAILY Status: Complete Target: Activity Type Activity Date Activity User E-Sign Co-Sign Detail Recorded Client Recorded Date Recorded By Document 10/03/16 18:24 [id number] 10/03/16 18:24 [id number] 10/03/16 18:24 PMRU Outcome: Coping/Psychosocial Coping Outcome/Goals Verbalization of Acceptance of Rehab Admit Verbalization of Sense of Control Over Health Status Willingness to Participate in Treatment Plan and Basic Needs Utilization of Available Support Systems Psychosocial Outcome/Goals Maintain/ Improve Emotional Health Cooperate/ Participate in Plan Progression Toward Outcome/Goals - Progressing Coping Progression Toward Outcome/Goals - Progressing Psychosocial Psychosocial Outcome/Goals Met Maintain/ Improved Emotional Health Demonstrated Knowledge of Healthy Coping Mechanisms Available DVT Prophylaxis- Improve/Maintain Start: 09/03/16 23:19 Freq: DAILY Status: Complete Target: Activity Type Activity Date Activity User E-Sign Co-Sign Detail Recorded Client Recorded Date Recorded By Document 09/19/16 08:00 [id number] 09/19/16 13:00 [id number] 09/19/16 08:00 PMRU Outcome: DVT Prophylaxis Outcome/Goals Remains Free of DVT Complies with DVT Prophylaxis /Treatment Demonstrates Knowledge of DVT Prevention/ Treatment TEDS Stockings on Every AM, Off at HS Other Outcome/Goals declines teds this AM Outcome/Goals Met Remains Free of DVT /GI-Improve/Maintain Start: 09/03/16 23:19 Freq: DAILY Status: Complete Target: Activity Type Activity Date Activity User E-Sign Co-Sign Detail Recorded Client Recorded Date Recorded By Document 09/19/16 08:00 [id number] 09/19/16 13:00 [id number] 09/19/16 08:00 PMRU Outcome: Genitourinary/ Gastrointestinal Genitourinary- Outcome/Goals Maintain/ Achieve Urinary Continence Remain Free of Hospital- Acquired UTI Gastrointestinal-Outcome/Goals Maintain/ Achieve Bowel Regularity in Accordance with Pt's Baseline Remain Free of Emesis Prevent Constipation Bowel Regularity at Home Laxatives as Ordered Genitourinary- Outcome/Goals Met Maintain/ Achieve Urinary Continence Gastrointestinal-Outcome/Goals Met Maintain/ Achieve Bowel Regularity in Accordance with Pt's Baseline Remain Free of Emesis Mobility- Improve/Maintain Start: 09/03/16 18:01 Freq: DAILY Status: Active Target: Activity Type Activity Date Activity User E-Sign Co-Sign Detail Recorded Client Recorded Date Recorded By Document 10/09/16 16:18 [id number] 10/09/16 16:18 [id number] 10/09/16 16:18 PMRU Outcome: Mobility Physical Therapy Evaluation and Yes Treatment Activity OOB with Assistance Yes WBAT Yes NWB No TTWB No Patient to be seen 5x/wk for 60-120 min/ Therex day for: Mobility Training Gait Training W/C Mobility Balance Outcome/Goals Maintain/ Achieve Baseline Mobility Status Improve Mobility Status Demonstrates Proper Use of Assistive Devices Free from Complications of Immobility Progression Toward Outcome/Goals Progressing Bed Mobility Yes: independent Transfers mod independent W/C Mobility x ft Yes: independent x250ft Neurological- Improve/Maintain Start: 09/03/16 23:19 Freq: DAILY Status: Active Target: Activity Type Activity Date Activity User E-Sign Co-Sign Detail Recorded Client Recorded Date Recorded By Document 10/12/16 23:20 [id number] 10/12/16 23:20 [id number] 10/12/16 23:20 PMRU Outcome: Neurological Weakness/Aphasia Weakness Left Side Outcome/Goals Maintain/ Achieve Baseline Neurological Status Improve Neurological Status Maintain/ Improve Strength/ROM Progression Toward Outcome/Goals Progressing Outcome/Goals Met Maintain/ Improve Strength/ROM Pain/Comfort- Improve/Maintain Start: 09/03/16 23:19 Freq: DAILY Status: Complete Target: Activity Type Activity Date Activity User E-Sign Co-Sign Detail Recorded Client Recorded Date Recorded By Document 09/13/16 08:00 [id number] 09/13/16 14:43 [id number] 09/13/16 08:00 PMRU Outcome: Pain/Comfort Outcome/Goals Demonstrates Knowledge and Use of Available Comfort Measures Achieves Acceptable Comfort/Pain Level as Determined by Patient/Condit Maintain Comfort Level Allowing Patient to Fully Participate in Rehab Outcome/Goals Met Demonstrates Knowledge and Use of Available Comfort Measures Achieves Acceptable Comfort/Pain Level as Determined by Patient/Condit Safety- Improve/Maintain Start: 09/03/16 23:19 Freq: DAILY Status: Active Target: Activity Type Activity Date Activity User E-Sign Co-Sign Detail Recorded Client Recorded Date Recorded By Document 10/12/16 23:20 [id number] 10/12/16 23:20 [id number] 10/12/16 23:20 PMRU Outcome: Safety Outcome/Goals Remain Free of Injury or Harm Cooperates with Safety Measures for Least Restrictive Environment Prevent Falls/ Injury Other Outcome/Goals New interventions since Fall 09/23: Cannot be left in room alone when up in w/c must be in hallway, PA to remain in place, CB in reach Progression Toward Outcome/Goals Progressing Outcome/Goals Met Cooperates with Safety Measures for Least Restrictive Environment Prevent Falls/ Injury Outcome/Goals Met Comment PA in place, call jaramillo in reach Skin- Improve/Maintain Start: 09/03/16 23:19 Freq: DAILY Status: Complete Target: Activity Type Activity Date Activity User E-Sign Co-Sign Detail Recorded Client Recorded Date Recorded By Document 09/13/16 08:00 [id number] 09/13/16 14:43 [id number] 09/13/16 08:00 PMRU Outcome: Skin Skin Risk Level Medium Skin Orders Dressing Change Air Mattress Dressing Change Comments pillows repositioned Outcome/Goals Maintain/ Improve Skin Intergrity Free from Decubitus Surgical Incisions Healing Outcome/Goals Met Maintain/ Improve Skin Intergrity Free from Decubitus Medicine Note: Length of Stay: 2 days Anticipated Discharge Destination: Home Tentative Discharge Date: 10/15/16 Discharged to: home
[2016-10-13] MEDS: Atorvastatin* 10 MG TAB PO SCH (17:18)
[2016-10-13] MEDS: CMC: Melatonin (NF) 3 MG TAB PO SCH (20:46)
[2016-10-14] MEDS: Heparin VIAL(*) 5000 UNITS/ML VIAL (FIVE THOUSAND) SUBCUT SCH ×2 (08:22→21:01)
[2016-10-14] MEDS: Atorvastatin* 10 MG TAB PO SCH (17:02)
[2016-10-14] MEDS: CMC: Melatonin (NF) 3 MG TAB PO SCH (21:01)
[2016-10-15 06:04] VITALS: BP 108/71
[2016-10-15] MEDS: Heparin VIAL(*) 5000 UNITS/ML VIAL (FIVE THOUSAND) SUBCUT SCH (08:41)
--- NOTE | 2016-10-17 09:25 | DS ---
CC: Zaira Sebastian; Dr. Card at the [facility]. * DISCHARGE SUMMARY: DATE OF ADMISSION: 09/03/16 DATE OF DISCHARGE: 10/15/16 DISCHARGE DIAGNOSES: 1. Thalamic intracerebral hemorrhage. 2. Hypercholesterolemia. HISTORY OF ILLNESS AND HOSPITAL COURSE: For complete history of the events leading up to her rehab stay, please see the history and physical dictated by me on September 03, 2016. While on the rehab unit, the patient was fairly stable from a medical point of view. Her sutures from her external ventricular drain were removed. The side healed well. The neurosurgical attending at the [facility] felt her thalamic hemorrhage was likely caused by hypertension. She had been placed on antihypertensives while at the [facility]. On the rehab unit, it was noted that her blood pressure was low. This became especially apparent as the patient began to spend more time upright. Her blood pressure medicines were cut back. First her amlodipine dose was lowered. Her amlodipine was later discontinued. Then her lisinopril dose was lowered; it was lowered a second time, and then discontinued. Her blood pressure on discharge was in the 110/70 range. The patient had gradual return of her motor strength on the left side. The patient worked with both Physical and Occupational Therapy and made very good gains with both disciplines. With physical therapy at the time of admission, the patient required max assist for bed mobility, she was total assistance for a transfer. She required max assist of 2 people. With occupational therapy at the time of admission, the patient required moderate amount of assistance for upper body dressing, total assistance for lower body dressing, max assist for bathing, total assistance for toileting, and mod assist of 2 people for toilet transfers. By the time of discharge, the patient was independent in bed mobility, contact guard for transfers, contact guard ambulating a 150 feet using a sergo cane, although often required just distant supervision as well. She was able to ambulate up 12 steps with supervision. She was independent with toileting, dressing with supervision, toileting and toilet transfers contact guard. The patient was also seen by Speech Therapy. She worked on a variety of variety of cognitive and linguistic skills while on the rehab unit. She made gains, by the time of discharge had no difficulties with communication, no deficits in swallowing and with independence for reading and writing functional tasks. The patient was discharged home on 10/15/16. Family training was undertaken prior to discharge. DISCHARGE DIET: Regular. DISCHARGE MEDICATIONS: 1. Lipitor 10 mg daily. 2. Senokot 2 tablets at bedtime as needed. SERVICES AFTER DISCHARGE: She will have visiting nurse service at home; she will have home nursing, home physical therapy, home occupational therapy, and home speech therapy. FOLLOWUP: Followup with Dr. Jim Osborn, the eye doctor as well as with Dr. Card, the Vascular Neurosurgeon. She will also follow up with Zaira Sebastian, her primary care provider. [id number]/[facility] #: [id number] NAIN
== END 2016-10-15 11:25 | disposition home health service (06) | DRG 58 ==
LOC: PMRU 12:14
PROVIDERS: ADMIT Physical Medicine & Rehabilitation; ATTEND Physical Medicine & Rehabilitation
PROC: F07Z5ZZ Bed Mobility Treatment (ICD-10-PCS; principal; 2016-09-03)
PROC: F07Z8ZZ Transfer Training Treatment (ICD-10-PCS; 2016-09-03)
PROC: F07Z9ZZ Gait Training/Functional Ambulation Treatment (ICD-10-PCS; 2016-09-03)
PROC: F07Z4ZZ Wheelchair Mobility Treatment (ICD-10-PCS; 2016-09-03)
PROC: F08Z0ZZ Bathing/Showering Techniques Treatment (ICD-10-PCS; 2016-09-03)
PROC: F08Z1ZZ Dressing Techniques Treatment (ICD-10-PCS; 2016-09-03)
PROC: F08Z3ZZ Feeding/Eating Treatment (ICD-10-PCS; 2016-09-03)
PROC: F06Z6ZZ Communicative/Cognitive Integration Skills Treatment (ICD-10-PCS; 2016-09-03)
DX: I69.151 Hemiplegia and hemiparesis following nontraumatic intracerebral hemorrhage affecting right dominant side (principal); E87.1 Hypo-osmolality and hyponatremia; I10 Essential (primary) hypertension; E87.6 Hypokalemia; F41.9 Anxiety disorder, unspecified; M54.2 Cervicalgia; W05.0XXA Fall from non-moving wheelchair, initial encounter; Y92.230 Patient room in hospital as the place of occurrence of the external cause; R74.0 Nonspecific elevation of levels of transaminase and lactic acid dehydrogenase [LDH]
CPT/HCPCS: 36415; 70450; 72125; 80048; 80053; 83735; 85025; A9270-GY; J1644